=== PATIENT | female | born 1985 | race Caucasian/White ===

== ENCOUNTER 2020-11-28 03:46 | Emergency (ER) | payer BC, SELFPAY ==
--- NOTE | ~2020-11-28 | XR_ITS ---
EXAMINATION: XR chest 1V portable DATE: 11/28/2020 08:59 INDICATION: Nonsmoker with intermittent hypoxia TECHNIQUE: frontal view of the chest was obtained. COMPARISON: Chest radiograph dated 01/08/2005 FINDINGS: The lungs remain clear with no focal airspace opacities, pulmonary edema, pleural effusion or pneumot horax. The cardiomediastinal silhouette is normal. Visualized bones and soft tissues are unremarkable . IMPRESSION: 1. No acute cardiopulmonary disease. Reviewed, dictated and finalized at location A.
[2020-11-28 03:51] VITALS: BP 112/67; PULSE 98; RESP 20; TEMP 36.1; O2SAT 96
--- NOTE | 2020-11-28 04:00 | ECG_ITS ---
Measurements Intervals [place] Rate: 101 P: 34 OK: 164 QRS: 59 QRSD: 90 T: 24 QT: 354 QTc: 459 Interpretive Statements SINUS TACHYCARDIA BORDERLINE ECG Electronically Signed On 11-28-2020 6:07:28 CDT by Jeffrey Bryant D.O.
--- NOTE | 2020-11-28 04:06 | ED.GENADULT ---
HPI - General Adult General Chief complaint: Alcohol <Mack Jeong MD - Last Filed: 11/28/20 07:00> Stated complaint: etoh <Mack Jeong MD - Last Filed: 11/28/20 07:00> Time Seen by Provider: 11/28/20 03:51 <Mack Jeong MD - Last Filed: 11/28/20 07:00> History of Present Illness HPI narrative: Patient 35-year-old female who presents the emergency department with chief complaint of alcohol intoxication and depression. Patient reports that she has been more depressed over the last week reports has been having thoughts of wanting to hurt herself and tonight reports that she took two 0.25 mg Xanax and then drank a bottle of wine and drank a few shots of hard liquor. The patient was found minimally responsive and police did some chest compressions on her she vomited and woke up and has been alert and oriented since then. The patient states she is having no pain just feels intoxicated at this time. <Mack Jeong MD - Last Filed: 11/28/20 07:00> Related Data Allergies/adverse reactions: Allergies Allergy/AdvReac Type Severity Reaction Status Date / Time No Known Allergies Allergy Verified 09/12/19 12:54 <Mack Jeong MD - Last Filed: 11/28/20 07:00> Review of Systems Review of Systems: A 10 system review of systems was completed on the patient and is negative except for what is stated in the HPI. Nursing and ancillary documentation was reviewed. <Mack Jeong MD - Last Filed: 11/28/20 07:00> [facility] Past Medical History Medical History: Medical History Generalized anxiety disorder Patellar dislocation right Sore throat (~07/2018) <Mack Jeong MD - Last Filed: 11/28/20 07:00> Surgical History Surgical History: Surgical History History of foot surgery right <Mack Jeong MD - Last Filed: 11/28/20 07:00> Family History Family History: Family History Other Diabetes mellitus Hypertension <Mack Jeong MD - Last Filed: 11/28/20 07:00> Social History Social History: Social History Smoking status: Never smoker Second hand tobacco smoke exposure: No Alcohol intake: never Substance use: never Substance use type: sedatives <Mack Jeong MD - Last Filed: 11/28/20 07:00> Exam Narrative: GENERAL: Well-appearing, well-nourished, and in no acute distress. HEAD: Normocephalic, atraumatic. EYES: PERRLA and EOMI. ENT: Nares clear, no rhinorrhea or epistaxis. Mucous membranes moist. NECK: Supple. CHEST: Clear to auscultation. No respiratory distress. HEART: Regular rate and rhythm. No murmur heard. Normal peripheral pulses. ABDOMEN: Soft, nontender, nondistended, normal active bowel sounds. EXTREMITIES: Normal range of motion. No edema. SKIN: Warm, dry, no rash. NEURO: No focal deficits. Alert and oriented x3. PSYCH: Depressed affect tearful <Mack Jeong MD - Last Filed: 11/28/20 07:00> Course Reevaluation(s) Reevaluation #1: Patient is no longer intoxicated. She was assessed by Marla from [facility]. Patient is medically cleared. She has been dealing with worsening depression for some months. She told Marla that she has written suicide notes to her children and she has been drinking more. It has been determined that she will need inpatient psychiatric placement. She has been accepted to [facility] by Dr. Hardin. <Omayra Olson MD - Last Filed: 11/28/20 16:18> Date: 11/28/20 <Omayra Olson MD - Last Filed: 11/28/20 16:18> Time: 13:11 <Omayra Olson MD - Last Filed: 11/28/20 16:18> Reevaluation #2: PAtient is awaiting for an ambulance
[2020-11-28] MEDS: SODIUM CHLORIDE 0.9% IV 1,000 ML 999 ML IV CONT (04:24)
[2020-11-28] MEDS: ONDANSETRON INJ 4 MG/2 ML VIAL IV PUSH (04:24)
[2020-11-28 04:27] LABS: Basophils Absolute Auto 0.1 K/mm3 (0.0-0.1); Basophils Percent Auto 0.4 % (0.2-1.2); Eosinophils Absolute Auto 0.1 K/mm3 (0-0.3); Eosinophils Percent Auto 0.7 % (0-4.4); Hematocrit 41.6 % (37.0-47.0); Hemoglobin 13.4 g/dL (12.0-15.0); Immature Granulocyte Absolute 0.05 K/mm3 (0.00-0.031); Immature Granulocyte Percent A 0.4 % (0-0.5); Lymphocytes Percent Auto 31.4 % (18.3-44.2); Mean Corpuscular HGB Conc 32.2 g/dl (32-36); Mean Corpuscular Hemoglobin 28.1 pg (26-34); Mean Corpuscular Volume 87.2 fl (80-100); Mean Platelet Volume 9.6 fl (7.4-10.4); Monocytes Absolute Auto 0.7 K/mm3 (0.1-0.6); Monocytes Percent Auto 5.4 % (2.6-8.5); Neutrophils Absolute Auto 7.5 K/mm3 (1.3-6.7); Neutrophils Percent Auto 61.7 % (45.5-73.1); Platelet Count Result 355 k/mm3 (150-375); Red Blood Count 4.77 M/mm3 (4.2-5.4); Red Cell Distribution Width 13.3 % (11.5-14.5); White Blood Count 12.1 K/mm3 (4.5-10.0)
[2020-11-28 04:39] LABS: Alanine Aminotransferase 23 U/L (4-35); Albumin Level 4.3 g/dL (3.5-5.1); Alkaline Phosphatase 109 U/L (38-126); Anion Gap 11 mmol/L (8-16); Aspartate Amino Transferase 27 U/L (14-36); Bilirubin,Total < 0.1 mg/dL (0.2-1.3); Blood Urea Nitrogen 9 mg/dL (7-17); Calcium 8.7 mg/dL (8.4-10.2); Carbon Dioxide 25 mmol/L (22-30); Chloride 103 mmol/L (98-107); Estimated CRCL calculation 138 ml/min; Estimated Glomerular Filt Rate > 60; Glucose 119 mg/dL (65-110); Potassium 3.7 mmol/L (3.4-5.0); Sodium 139 mmol/L (137-145)
[2020-11-28 04:40] LABS: Acetaminophen < 10 ug/mL (10-30); Ethanol 182 mg/dL (<10); Salicylate < 1.0 mg/dL (2-20)
[2020-11-28] MEDS: LORazepam INJ (*CRX) 2 MG/ML VIAL 1 MG IV PUSH (05:40)
[2020-11-28 06:20] LABS: Add Urine Microscopic? YES; Appearance Urine Clear (Clear); Bacteria Urine Trace /hpf; Bilirubin Urine Negative (Negative); Blood Urine 1+ (Negative); Color Urine Colorless (Yellow); Glucose Urine UA Negative (Negative); Ketones Urine Negative (Negative); Leukocyte Esterase Ur Negative LEU/UL (Negative); Nitrate Urine Negative (Negative); Protein Urine Negative (Negative); RBC Urine 0-2 /hpf (0-2); Squamous Epithelial Cell Urine Rare /hpf (Few); Urobilinogen Urine Negative mg/dL (<2.0); WBC Urine 0-3 /hpf
[2020-11-28 06:31] LABS: Barbiturate Screen Urine Negative (Negative); Benzodiazepines Screen Urine Negative (Negative); Specific Grav Ur 1.002 (1.001-1.035)
[2020-11-28 06:34] LABS: Amphetamine Screen Urine Negative (Negative); Cannabinoid Screen Urine Negative (Negative); Methadone Screen Urine Negative (Negative); Opiate Screen Urine Negative (Negative); Phencyclidine Screen Urine Negative (Negative)
[2020-11-28 06:38] VITALS: BP 114/54; PULSE 97; RESP 18; TEMP 36.4; O2SAT 93
[2020-11-28 06:47] LABS: Ethanol 135 mg/dL (<10)
[2020-11-28 06:52] LABS: Cocaine Screen Urine Negative (Negative)
--- NOTE | 2020-11-28 08:31 | PC.NURSE ---
Per EDP via verbal order readback continue sitter with patient due to suicidal ideations and writing suicidal notes to their children. Pt. denies having a plan.
[2020-11-28 08:32] VITALS: BP 102/56; PULSE 99; RESP 20; O2SAT 99
[2020-11-28] MEDS: LACTATED RINGERS 1,000 ML 999 ML IV CONT (08:57)
[2020-11-28 09:40] LABS: Ethanol 76 mg/dL (<10)
[2020-11-28 10:36] VITALS: BP 115/78; PULSE 112; RESP 14; O2SAT 99
--- NOTE | 2020-11-28 12:20 | PC.NURSE ---
Received call from [facility] with accepting doctor, Dr. Hardin.
--- NOTE | 2020-11-28 12:56 | PC.NURSE ---
Received phone call from Marie with [facility] facility, confirming that patient has been covid tested.
[2020-11-28 13:03] LABS: EDCOVIDSCREEN Negative (Negative)
[2020-11-28] MEDS: ACETAMINOPHEN 325 MG TABLET 650 MG PO (16:40)
--- NOTE | 2020-11-28 19:36 | PC.NURSE ---
called [facility] to request transport [facility] unavailable. [facility] [place] [facility] also declined. [facility] accepted and ETA is 1130 tomorrow.
--- NOTE | 2020-11-28 22:46 | PC.NURSE ---
[facility]. Called [facility] and ETA is approx 2 1/2 hours
[2020-11-28 23:00] VITALS: RESP 16; O2SAT 98
--- NOTE | 2020-11-28 23:00 | PC.NURSE ---
Assumed care of pt. at this time. Report from Mattie
[2020-11-29 00:27] VITALS: BP 127/82; PULSE 83; RESP 16; TEMP 36.6; O2SAT 98
[2020-11-29 01:25] VITALS: BP 128/74; PULSE 78; RESP 14; O2SAT 97
--- NOTE | 2020-11-29 01:51 | PC.NURSE ---
Previous Rn gave report to SHALA Roberson at [id number] 11/28/20
--- NOTE | 2020-11-29 05:43 | PC.NURSE ---
cancelled [facility]
== END 2020-11-29 01:25 ==
PROVIDERS: Emergency Medicine; Emergency Provider General Practice; PCP Physician Assistant
DX: F32.9 Major depressive disorder, single episode, unspecified (principal); F10.120 Alcohol abuse with intoxication, uncomplicated; F19.90 Other psychoactive substance use, unspecified, uncomplicated; Y90.6 Blood alcohol level of 120-199 mg/100 ml; Z20.822 Contact with and (suspected) exposure to COVID-19
CPT/HCPCS: 36415; 71045; 80053; 80307; 81001; 81025; 84443; 85025; 87426; 93005; 96361; 96374; 96375; 99285; A9270; C9803; J2060; J2405; J7030; J7120

== ENCOUNTER 2024-06-05 09:07 | Emergency (ER) | payer BC, SELFPAY ==
--- OUTSIDE RECORDS SUMMARY | 2024-06-05 09:09 | XMS_ITS | Data Portability ---
Author Organization [facility] Address [address] [place] [address] Care Team Providers Care Hook Loader Name Role Phone MICHAEL HILL Primary Care Provider LACHELLE GILMORE Primary Care Provider Assessment Encounter Date Assessment Date Assessment LastModified by Organization Details LastModified Time 01/11/2021 01/11/2021 Annual gynecological exam performed. Patient will come back in a year unless there are new symptoms. Not available 01/11/2021 12:12:04 03/25/2023 03/25/2023 Annual gynecological exam performed. Patient will come back in a year unless there are new symptoms. [email or web address] Not available 03/25/2023 09:31:08 Plan of Treatment Reminders Order Date Submit Date Provider Last Modified By Organization Details Last Modified Time Details Appointments None recorded. Lab None recorded. Referral None recorded. Procedures None recorded. Surgeries None recorded. Imaging None recorded. Medication Orders Provera 10 mg tablet 2020 021 [email or web address] [facility] #[id number], [address], [place], [id number], 09:48:43 Loestrin Fe 1/20 (28-Day) 1 mg-20 mcg (21)/75 mg (7) tablet 2021 022 JENNIFER [facility] #[id number], [address], [place], [id number], 2 18:19:38 Blisovi Fe /20 (28) 1 mg-20 mcg (21)/75 mg (7) tablet 2021 022 [facility] #[id number], [address], [place], [id number], 2 17:32:38 Blisovi Fe / (28) 1 mg-20 mcg (21)/75 mg (7) tablet 2022 023 [facility] #[id number], [address] [facility], [place], [place], [id number], 3 09:51:35 Patient TargetsNo targets recorded. Patient InstructionsNo instructions recorded. Reason for Referral None Reported. 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 Locat ion: [place] [facility] Recei damon: 01/11 2349 First Scree n: Jaswinder Arnold , [place] Speci men: Scree miguel Pap - Image d, Cervi x STATE MENT OF ADEQU ACY: Satis facto ry for evalu ation Trans forma tion zone compo nent prese nt FINAL DIAGN OSIS: Negat freda for Intra epith miko patel or Atilio pate (NIL) Elect linda joy alejandro d by Jaswinder Arnold , CT on 2020 at 5:38 PM ----- ----- ----- ----- ----- ----- ----- ----- ----- ----- ----- ----- ----- ----- ----- ----- ----- ---- HPV RESUL TS: HPV mRNA E6/E7 : No HPV mRNA Detec stu NOTE: This high risk HPV mRNA assay detec ts fourt een high- risk HPV types (16, 18, 31, 33, 35, 39, 45, 51, 52, 56, 58, 59, 66, 68) witho ut diffe renti ation . COMME NT: Note: This speci men was revie wed by a Cytot echno logis t and/o r Patho logis t (as indic ated in this repor t) after evalu ation using the Thinp rep Imagi ng Syste m. CLINI PURA INFOR MATIO N: Menst rual Statu s: LMP (if appli cable ): 021 Clini pura Histo ry/Pr eviou s Pap: Type of Neopl adolfo (if appli cable ): Signi fican t Clini pura Findi ngs: Other Histo ry: Hormo hever (if appli cable ): PAP EDUCA EUN L NOTE: The Pap Test is a scree miguel test with an inher ent false negat freda rate. Liqui d-bas e sampl ing may decre ase, but will not elimi yamileth, false negat freda resul ts. A negat freda resul t does not precl ude the prese nce and/o r devel opmen t of disea se, since the prese nce of abnor mal cells in the sampl e depen ds on the locat ion of the lesio n and sampl ing techn ique. Kathie nued regul ar scree miguel is the best metho d of cance r preve ntion . If repor stu cytol ogic findi ng do not corre late with physi pura and/o r histo rical findi ngs, furth er inves tigat ion is recom margarito d, as clini aminata louise nted. Not Available [facility] [address], [place], [address], 01/15/2021 18:40:45 Result Notes None recorded. Problems Name Problem SNOMED Code Status Onset Date Resolution Date Notes Provider Name and Address Organization Details Recorded Time Insertio n of intraute rine contrace ptive device Completed 201310/11/2020 INSERTIO N OF IUD;Matthew rded Elsewher e: No Locat ion: Mattiesharonda gordon [facility] S ource: EHR Us Administrative Law Judge isabel: N Practi ce ID: 0001 Jonny lable Time: 08:00:00 AM Noreen Mckeon [facility] 1 12:22:[address] Concept Completed 201510/11/2020 Decrease d movement s, third trimeste r, unsp;Rec orded Elsewher e: No Locat ion: [facility] S ource: EHR Us Administrative Law Judge isabel: N Wayneti ce ID: 0001 Jonny lable Time: 01:18:00 [address]on [facility] 1 12:22:35 Irregula r intermen strual bleeding [id number] Completed 201410/11/2020 Metrorrh agia;Rec orded Elsewher e: No [facility] Administrative Law Judge isabel: N Wayneti ce ID: 0001 Jonny lable Time: 08:45:00 AM [address]oreen Mckeon [facility] 1 12:22:02 Normal pregnanc y in multigra alpa [id number] Completed 201510/11/2020 Encounte r for supervis ion of other normal pregnanc y, 1st trimeste r;Record ed Elsewher e: No [facility]at [facility] S our[facility]: EHR Us Administrative Law Judge isabel: N Practi ce ID: 0001 Jonny lable Time: 09:15:00 AM Noreen Mckeon [facility] 1 12:22:10 Human papillom avirus deoxyrib onucleic acid detected , high risk on cervical specimen [id number] Completed 201510/11/2020 Cervical high risk HPV DNA test positive ;Recorde d Elsewher e: No Locat ion: [facility] S ource: EHR Us Administrative Law Judge isabel: N Practi ce ID: 0001 Jonny lable Time: 11:10:30 AM Noreen Mckeon [facility] 1 12:21:59 Hemorrha gic complica tion of pregnanc y [id number] Completed 201510/11/2020 Other hemorrha ge in early pregnanc y;Record ed Elsewher e: No Locat ion: [facility] S ource: EHR Us Administrative Law Judge isabel: N Practi ce ID: 0001 Jonny lable Time: 09:00:00 AM Noreen Mckeon [facility] 12:21:55 Secondar y amenorrh ea [id number] Completed 201510/11/2020 Secondar y amenorrh ea;Recor ded Elsewher e: No Locat ion: [facility] S ource: EHR Us Administrative Law Judge isabel: N Practi ce ID: 0001 Jonny lable Time: 09:15:00 AM Noreen Mckeon [facility] 12:22:[address] Concept Completed 201710/11/2020 Encntr for general adult medical exam w/o abnormal findings ;Recorde d Elsewher e: No Locat ion: [facility] S ource: EHR Us Administrative Law Judge isabel: N Practi ce ID: 0001 Jonny lable Time: 09:30:00 AM Noreen Mckeon [facility] 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 12:22:38 Dyspareu fernando [id number] Completed 201410/11/2020 Dyspareu fernando;Matthew rded Elsewher e: No Locat ion: [facility] S ource: EHR Us Administrative Law Judge isabel: N Practi ce ID: 0001 Jonny lable Time: 02:00:00 PM Noreen dorsey [facility] 12:21:37 Gestatio n period, 10 weeks [id number] Completed 201510/11/2020 10 weeks gestatio n of pregnanc y;Practi ce ID: 0001 Noreen dorsey [facility] 12:21:46 Pregnanc y test negative [id number] Completed 201510/11/2020 Encounte r for pregnanc y test, result negative ;Practic e ID: 0001 Noreen Mckeon [facility] 12:22:19 Pregnanc y detectio n examinat ion Completed 201510/11/2020 Encounte r for pregnanc y test, result positive ;Practic e ID: 0001 Noreen dorsey [facility] 12:22:17 Atypical squamous cells of undeterm ined signific ance on cervical Papanico laou smear [id number] Completed 201510/11/2020 Atyp squam cell of undet signfc cyto smr crvx (ASC-US) ;Practic e ID: 0001 Noreen dorsey [facility] 12:21:23 Chronic intersti tial cystitis [id number] Completed 201410/11/2020 Chronic intersti tial cystitis ;Practic e ID: 0001 Noreen dorsey [facility] 12:21:26 Removal of intraute rine device Completed 201410/11/2020 Encounte r for removal of intraute rine contrace ptive device;Maura rosales ID: [address] [facility] 12:22:27 Female genital organ symptoms [id number] Completed 201410/11/2020 Pelvic Pain;Pra ctice ID: [address] [facility] 12:21:43 Acetonur ia [id number] Completed 201410/11/2020 Acetonur ia;Pract ice ID: [address] [facility] 12:21:16 Screenin g for malignan t neoplasm of cervix Completed 201310/11/2020 Pap Smear;Pr actice ID: [address] [facility] 12:22:30 Family planning surveill ance Completed 201310/11/2020 Contrace ptive surveill ance, unspecif ied;Prac sundar ID: [address] [facility] 12:21:41 Adult health examinat ion Completed 201410/11/2020 Routine general medical examinat ion at a health care facility ;Practic e ID: [address] [facility] 12:21:20 Speciali zed medical examinat ion Completed 201410/11/2020 Routine gynecolo gical examinat ion;Prac sundar ID: [address] [facility] 12:22:40 Postpart um care Completed 201210/11/2020 Postpart um follow-u p;Practi ce ID: [address] [facility] 12:22:15 Cyst of ovary [id number] Completed 201210/11/2020 OVARIAN CYST;[facility]ra ctice ID: 0001 [facility] 12[facility]21:32 Radiolog y result abnormal [id number] Completed 201210/11/2020 Nonspeci fic abnormal findings on radiolog ical and other examinat ion of abdomina l area, includin g retroper itoneum; Practice ID[facility] 0001 [facility] 12:22:25 Evaluati on finding Completed 201610/11/2020 Unsp abnormal cytolog findings in specmn from cervix uteri;Pr actice ID: 0001 [facility] 12:21:38 Oligohyd ramnios with antenata l problem [id number] Completed 201210/11/2020 Oligohyd ramnios, antepart um;Pract ice ID: 0001 [facility] 12:22:12 Gestatio n period, 32 weeks [id number] Completed 201510/11/2020 32 weeks gestatio n of pregnanc y;Practi ce ID: 0001 [facility] 12:21:48 Complica tion related to pregnanc y Completed 201210/11/2020 Weight Insuffic ient Antepart um;Pract ice ID: 0001 [facility] 12:21:28 Routine antenata l care Completed 201210/11/2020 Supervis ion of other normal pregnanc y;Practi ce ID: 0001 Noreen dorsey [facility] 12:22:29 Poor growth affectin g manageme nt [id number] Completed 201210/11/2020 GROWTH POOR SGA;Prac sundar ID: 0001 Noreen dorsey [facility] 06/17/202 1 12:22:13 Ultrason ography Completed 201210/11/2020 Antenata l screenin g for malforma tion using ultrason ics;Matthew rded Elsewher e: No [facility]at [facility] S ource: EHR Us Administrative Law Judge isabel: N Practi ce ID: 0001 Jonny lable Time: 04:45:00 PM Noreen Mckeon [facility] 1 12:22:50 Antenata l screenin g Completed 201210/11/2020 Antenata l screenin g for malforma tion using ultrason ics;Matthew rded Elsewher e: No Locat ion: [place] [facility] S ource: EHR Us Administrative Law Judge isabel: N Practi ce ID: 0001 Jonny lable Time: 04:45:00 PM Noreen Mckeon [facility] 1 12:21:21 Congenit al malforma tion [id number] Completed 201210/11/2020 Antenata l screenin g for malforma tion using ultrason ics;Matthew rded Elsewher e: No [facility] S ource: EHR Us Administrative Law Judge isabel: N Practi ce ID: 0001 Jonny lable Time: 04:45:00 PM Noreen Mckeon [facility] 1 12:21:30 Nausea and vomiting [id number] Completed 201210/11/2020 Nausea And Vomiting ;Recorde d Elsewher e: No Locat ion: [facility] S ource: EHR Us Administrative Law Judge isabel: N Practi ce ID: 0001 Jonny lable Time: 09:00:00 AM Noreen Mckeon [facility] 1 12:22:09 Excessiv e growth affectin g manageme nt of mother [id number] Completed 201210/11/2020 GROWTH LARGE LGA;Prac sundar ID: [address] [facility] 1 12:21:40 Prematur e rupture of membrane s with antenata l problem [id number] Completed 201210/11/2020 Prematur e rupture of membrane s, antepart um;Pract ice ID: [address] [facility] 12:22:23 Gestatio n period, 34 weeks [id number] Completed 201510/11/2020 34 weeks gestatio n of pregnanc y;Practi ce ID: [address] [facility] 12:21:50 Medical examinat ion for suspecte d conditio n Completed 201510/11/2020 Encntr for susp prob w amnio cavity and membrane ruled out;Prac sundar ID: [address] [facility] 12:22:07 Past pregnanc y history of gestatio nal trophobl astic disease [id number] Completed 201510/11/2020 Personal history of comp of preg, chldbrth and the puerp;Pr actice ID: [address] [facility] 12:21:57 Pregnanc y test positive [id number] Completed 201110/11/2020 Positive Pregnanc y Test;Pra ctice ID: [address] [facility] 12:22:20 Body mass index 30+ - obesity 985637116 Completed 201510/11/2020 Body mass index (BMI) 33.0-33. 9, adult;Re corded Elsewher e: No Locat ion: Marissa leyva [facility] S ource: EHR Us Administrative Law Judge isabel: N Practi ce ID: 0001 Jonny lable Time: 09:15:00 [facility] 12:21:24 Complica tion of pregnanc y, childbir th and/or puerperi [id number] Completed 201510/11/2020 Oth diseases and conditio ns compl preg/chl dbrth;Pr actice ID: 0001 Noreen dorsey [facility] 12:22:44 Gestatio n period, 38 weeks [id number] Completed 201510/11/2020 38 weeks gestatio n of pregnanc y;Practi ce ID: 0001 Noreen dorsey [facility] 12:21:51 Lacerati on of female perineum Completed 201510/11/2020 First degree perineal lacerati on during delivery ;Practic e ID: 0001 Noreen dorsey [facility] 12:22:04 Single live [id number] Completed 201510/11/2020 Single live ;Pr actice ID: 0001 Noreen Mckeon [facility] 12:22:33 Delivery normal [id number] Completed 201210/11/2020 Normal delivery ;Practic e ID: 0001 Noreen dorsey [facility] 12:21:35 Gestatio n period, 39 weeks [id number] Completed 201510/11/2020 39 weeks gestatio n of pregnanc y;Practi ce ID: 0001 Noreen Mckeon [facility] 12:21:53 Lochia finding Completed 201510/11/2020 Encounte r for routine postpart um follow-u p;Practi ce ID: 0001 Noreen Mckeon [facility] 12:22:05 Gestatio n less than 9 weeks [id number] Completed 201510/11/2020 Less than 8 weeks gestatio n of pregnanc y;Record ed Elsewher e: No [facility] Administrative Law Judge isabel: N Practi ce ID: 0001 Jonny lable Time: 09:15:00 AM Noreen Mckeon [facility] 12:21:45 Acute upper respirat ory infectio n [id number] Completed 201210/11/2020 Acute upper respirat ory infectio ns of unspecif ied site;Pra ctice ID: [address] [facility] 12:21:18 Threat ed prematur e labor - not delivere d [id number] Completed 201210/11/2020 [facility] ed prematur e labor, antepart um;Pract ice ID: [address] [facility] 12:22:42 Problem Notes None recorded. Procedures Surgical History Date Name Laterality Status Provider Name and Address Organization Details Recorded Time Date of Last Pap Smear completed Carly Nation [facility] 03/25/2023 09:26:31 procedure on foot completed [facility] 2019 13:10:31 kidney stone analysis completed [facility] 2019 13:10:44 Dilation and Curettage completed [facility] 2019 13:10:50 Imaging Results None recorded. Procedure Notes None recorded. Medical Equipment None Reported. Allergies No known drug allergies Medications Name Sig Start Date Stop Date Status Note LastModified by Organization Details LastModified Time medroxypr ogesteron e 10 mg tablet TAKE 1 TABLET BY MOUTH DAILY FOR 10 DAYS AT THE END OF EACH MONTH IF PERIOD DOES NOT OCCUR ON ITS OWN 03/25 completed Not Available Not Available Not Available Ceftin 500 mg tablet take 1 tablet (500MG) by oral route every 12 hours 01/06 completed Prescrib ed Elsewher e: No [facility] By: jaiden Leyva ncounter DateTime : 08/31/19 13 09:15:00 AM Not Available Not Available Not Available fluconazo le 150 mg tablet 03/25 completed Not Available Not Available Not Available Claritin 10 mg tablet take 1 tablet by oral route every day 2018 active Prescrib ed Elsewher e: Yes Loca tion: Marissa leyva [facility] odify By: amannie duraner DateTime : 09/23/19 19 03:30:00 PM Not Available Not Available Not Available sertralin e 100 mg tablet TAKE 1 TABLET BY MOUTH DAILY 01/11 completed Not Available Not Available Not Available hydroxyzi ne pamoate 50 mg capsule TAKE 1 CAPSULE BY MOUTH TWICE DAILY NEEDED active Not Available Not Available No t Available Zofran 8 mg tablet take 1 tablet (8MG) by oral route every 12 hours 01/06 completed Prescrib ed Elsewher e: No Locat ion: Luan gordon [facility] odify By: jaiden starruntdamir DateTime : 07/17/19 13 09:00:00 AM Not Available Not Available Not Available alprazola m 0.25 mg tablet TAKE ONE-HALF TO ONE TABLET BY MOUTH DAILY NEEDED FOR PANIC 10/11 completed Not Available Not Available Not Available Low-Ogest rel (28) 0.3 mg-30 mcg tablet TAKE 1 TABLET BY ORAL ROUTE EVERY DAY 11/28 completed Not Available Not Available Not Available Nor-Q-D 0.35 mg tablet take 1 tablet by oral route every day 01/30 completed Prescrib ed Elsewher e: No Locat ion: Marissa leyva [facility] odify By: lbillhar tz Encou nter DateTime : 07/11/19 17 09:30:00 AM Not Available Not Available Not Available Vitamin D2 1,250 mcg (50,000 unit) capsule take 1 capsule (45737HI ITS) by oral route every week 12/20 completed Prescrib ed Elsewher e: No Locat ion: Marissa leyva [facility] odify By: kpanyik Encounte r DateTime : 09/13/19 16 11:56:32 AM Not Available Not Available Not Available sertralin e 50 mg tablet TAKE 1 TABLET BY MOUTH EVERY DAY IN THE MORNING active Not Available Not Available No t Available Xanax 1 mg tablet 11/26 completed Not Available Not Available Not Available amoxicill in 875 mg-potass ium clavulana te 125 mg tablet 03/25 completed Not Available Not Available Not Available hydroxyzi ne pamoate 25 mg capsule TAKE 2 CAPSULES BY MOUTH TWICE DAILY NEEDED 11/26 completed Not Available Not Available Not Available aripipraz ole 5 mg tablet TAKE 1 TABLET BY MOUTH EVERY DAY AT BEDTIME active Not Available Not Available No t Available sertralin e 01/11 completed Not Available Not Available Not Available Claritin 10/11 completed Not Available Not Available Not Available hydroxyzi ne pamoate 01/11 completed Not Available Not Available Not Available aripipraz ole 01/11 completed Not Available Not Available Not Available 10 mg-[address] by Topical route every USE ASS NEEDED WITH INTERCOU RSE 08/16 completed Prescrib ed Elsewher e: Yes Loca tion: [facility] odify By: jaiden Leyva ncounter DateTime : 01/07/20 13 08:45:00 AM Not Available Not Available Not Available Triveen-D uo DHA 29 mg-1 mg-400 mg oral pack take 1 by Oral route 09/22 completed Prescrib ed Elsewher e: No Locat ion: [facility] odify By: samuel Leyva ncounter DateTime : 03/21/20 15 03:45:00 PM Not Available Not Available Not Available TABLET TESTER-PNV-DH A 28 mg iron-1 mg-200 mg capsule 11/26 completed Not Available Not Available Not Available Blisovi Fe 05/16 (28) 1 mg-20 mcg (21)/75 mg (7) tablet Take 1 tablet every day by oral route for 90 days. 2022 active Not Available Not Available Not Avai lable Afluria Qd 2019- (36 mos up)(PF)60 mcg (15 mcg x4)/0.5 mL IM syringe ADM 0.5ML IM UTD 03/29 completed Not Available Not Available Not Available Vitals Date Recorded Body height Body mass index (BMI) Body weight Systolic blood pressure Diastolic blood pressure Provider Name and Address Organization Details Last Updated DateTime 10/11/2020 175.26 cm 39.3 kg/m2 265167.8 5 g 138 mm[Hg] 79 mm[Hg] [facility] 1 12:47:01 Date Recorded Body height Body mass index (BMI) Body weight Systolic blood pressure Diastolic blood pressure Provider Name and Address Organization Details Last Updated DateTime 01/11/2021 174.63 cm 40.5 kg/m2 806752.1 2 g 126 mm[Hg] 74 mm[Hg] [facility] 1 12:16:46 Date Recorded Body height Body mass index (BMI) Body weight Systolic blood pressure Diastolic blood pressure Provider Name and Address Organization Details Last Updated DateTime 11/26/2021 174.63 cm 43.5 kg/m2 331431.6 9 g 121 mm[Hg] 81 mm[Hg] [facility] 2 16:22:05 Date Recorded Body height Body mass index (BMI) Body weight Systolic blood pressure Diastolic blood pressure Provider Name and Address Organization Details Last Updated DateTime 02/26/2022 174.63 cm 41.9 kg/m2 623437.0 5 g 121 mm[Hg] 82 mm[Hg] [facility] 2 17:23:47 Date Recorded Body height Body mass index (BMI) Body weight Systolic blood pressure Diastolic blood pressure Provider Name and Address Organization Details Last Updated DateTime 03/25/2023 174.63 cm 41.9 kg/m2 391704.0 5 g 107 mm[Hg] 72 mm[Hg] Carly Nation [facility] 3 09:34:27 Social History Question Answer Notes LastModified by Organizat ion Details LastModified Time Tobacco Smoking Status [facility]22 17:16:49 Do You Have An Advance Directive? No Information not available 10/11/2020 What Is Your Level Of Alcohol Consumption? Occasional Information not available 10/11/2020 How Many Years Have You Consumed Alcohol? 12 Information not available 10/11/2020 Are You Blind Or Do You Have Difficulty Seeing? No Information not available 10/11/2020 What Is Your Level Of Caffeine Consumption? Moderate Information not available 10/11/2020 How Much Tobacco Do You Chew? None Information not available 10/11/2020 In The 14 Days Before Symptom Onset, Have You Had Close Contact With A Laboratory-confir med COVID-19 While That Case Was Ill? No Information not available 10/11/2020 In The 14 Days Before Symptom Onset, Have You Had Close Contact With A Person Who Is Under Investigation For COVID-19 While That Person Was Ill? No Information not available 10/11/2020 Have You Been To An Area Known To Be High Risk For COVID-19? No Information not available 10/11/2020 Are You Deaf Or Do You Have Serious Difficulty Hearing? No Information not available 10/11/2020 What Type Of Diet Are You Following? REGULAR Information not available 10/11/2020 What Is The Highest Grade Or Level Of School You Have Completed Or The Highest Degree You Have Received? 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 No Information not available 10/11/2020 Do You Use Protection During Sex? No Information not available 10/11/2020 Do You Use Your Seat Belt Or Car Seat Routinely? Yes Information not available 10/11/2020 Do You Have Smoke And Carbon Monoxide Detectors In Your Home? Yes Information not available 10/11/2020 How Much Tobacco Do You Smoke? No Information not available 10/11/2020 Do You Feel Stressed (tense, Restless, Nervous, Or Anxious, Or Unable To Sleep At Night)? [id number] Information not available 10/11/2020 Do You Use Any Illicit Or Recreational Drugs? No Information not available 10/11/2020 Do You Use Sunscreen Routinely? Yes Information not available 10/11/2020 Have You Used IV Drugs? No Information not available 10/11/2020 Sex: Unknown Functional Status Question Answer Note LastModified by Organizat ion Details LastModified Time Do you have difficulty walking or climbing stairs? No [email or web address] Information not available 02/26/2022 Are you able to walk? YESWOREST Information not available 10/11/2020 Are you able to care for yourself? Yes [email or web address] Information not available 02/26/2022 Do you have difficulty dressing or bathing? No [email or web address] Information not available 02/26/2022 What is your exercise level? Moderate Information not available 10/11/2020 Mental Status None recorded. Family History Relationship Description Onset Age of this Age Resolved Age Notes LastModified by Organization Details LastModified Time Mother Diabetes mellitus [email or web address] Not available 2019 13:09:21 Mother Uterine fibroid polyp [email or web address] Not available 2021 17:16:49 Maternal Grandmother Disorder of thyroid gland [email or web address] Not available 2019 13:09:27 Maternal Grandfather Carcinoma in situ of lung [email or web address] Not available 05/2021 17:16:49 Maternal Aunt Cyst of ovary [email or web address] Not available 2021 17:16:49 Medical History Condition Response Allergies (Food, seasonal, environmental ) N Other N Breast Cancer N Drug/Latex Allergies/Reactions N Blood Transfusion N Dermatologic Disorders N Lung Disease N Defects or Inherited Disease N Breast Problem N Gestational Diabetes N Hematologic disorders N Anesthesia Complications N History of STI N Deep Vein Thrombosis N Polycystic ovary syndrome N Anxiety Disorder N Autoimmune disease N Arthritis N Infertility N Polyps N Acid Reflux (GERD) N History of abnormal pap N Cancer N Stroke N Varicosities N Neurologic/Epilepsy N Endometriosis N High Cholesterol N Headaches N Fibromyalgia N Kidney Disease N Heart Problems N Kidney or Bladder Problems N Thyroid Problems N GI Problems N Eating Disorder N Anemia N Art (IVF or FET) N Psychiatric Illness N Ovarian Cancer N Diabetes N Pulmonary (TB, Asthma) N Hepatitis/Liver Disease N Eczema N Urinary Tract Infection N Abuse/Domestic Violence N Asthma N Trauma/Violence N Depression/ depression N Heart Disease N Pre-Eclampsia N Hypertension N Osteoporosis N Thrombophilias N Gynecological History Statement/Question Response Abnormal Pap Y Flow Moderate Date of LMP 03/17/2023 N On BCP's at Conception? N STIs/STDs N Was last menstrual period normal Y HPV Vaccine Y Duration of Flow (days) 4 Current Control Method BCPs Age at First Child 13 Are cycles usually normal Y Frequency of Cycle (Q days) 37 Sexually Active? Y BCPs Menses Monthly Y Age of first menstrual cycle 13 Date of Last Pap Smear 01/11/2021 Sexual Problems? N LMP Definite Desired Control Method BCPs N Obstetrics History GPAL:G 4 P 0 0 1 3 Type Value Spontaneous 1 Living 3 Total 4 Past Encounters Encounter ID Performer Location Encounter Start Date Encounter Closed Date Diagnosis/Indication Diagnosis SNOMED-CT Code Diagnosis ICD10 Code Diagnosis Note [id number] Lu Suarez [facility] [address] [address] 2019 13:01:45 2019 13:40:35 Gynecologic examination [id number] Z01.419 Take Calcium with Vitamin D 1200mg daily if not receiving in daily diet. It is strongly advised to have an annual flu shot and up can obtain at most pharmacies . If you have not had a TDap shot in the last 10 years you should obtain one as well. Discussed with patient & provided with informatio n regarding Gardisil vaccine to prevent the 4 strains for HPV that cause cervical cancer if under age 26. Encourage safe sexual practices, to use condoms and limit partners if not already in a monogamous relationsh ip. Do monthly self breast exams. Have mammogram yearly or every other year depending on family history. BRCA testing is now available for patients with strong genetic history of female cancer. If interested contact the office. Engage in daily exercise of low impact aerobic exercise 45-60 minutes 4-5 times weekly. Avoid tobacco and illicit drugs as well as using moderation with alcohol intake less than 1-2 8 oz beverages daily. This lifestyle behavior pattern will lead to less health conditions and longer life span. If BMI greater than 25 weight watchers or dietary consult advised. Patient received above instructio ns, and questions have been answered. If you have any questions please call or respond to this email. Patient was made aware of the patient portal and may obtain a paper copy of today's plan if desired. Secondary amenorrhea [id number] N91.1 No period since 07/06/2019 after stopping OCP. Wants to try for another baby. Neg Hx irregular menses in the past. [id number] Soledad Mckeon [facility] [address],[place] [address] 12/20/2019 09:52:17 12/20/2019 10:35:42 Amenorrhea [id number] N91.2 [id number] Lu Suarez [facility] [address],[place] [address] 12/20/2019 09:52:34 12/20/2019 11:08:17 Secondary dysmenorrhea [id number] N94.5 TVUS reviewed. Discussed Provera Challenge. Agreed to this trial. Will contact pt if further md recommenda tions after review of US are received. If provera challenge failed then consider estrogen/p rogesteron e challenge. RTO x 2wks Time spent in visit is a total of 15 mins with at least 50% of visit consisting of counseling and review of plan of care. [id number] Lu Suarez [facility] [address],[place] [address] 01/03/2020 11:11:53 01/03/2020 11:36:28 Secondary dysmenorrhea 19290056 N94.5 Since she was successful on provera challenge we agreed to monitor her cycles for the next 90d. She will f/u to report if was able to have menses on her own. We reviewed importance of having menses q90d to avoid precancers /cancers of endometriu m. Likely has not been ovulating regularly. RTO x 3mos Time spent in visit is a total of 15 mins with at least 50% of visit consisting of counseling and review of plan of care. [id number] Lu Suarez [facility] [address],[place] [address] 03/29/2020 10:06:35 03/29/2020 10:35:29 Secondary amenorrhea [id number] N91.1 Did well on provera challenge LINO but has not had a cycle on her own since this time. We agreed to do provera 10mg daily x 10d at the end of each month or end of q3mos for the next 6mos then f/u to see if able to have cycles on her own any of those months or how the provera is working for her. Body mass index 30+ - obesity [id number] Z68.39 Today we also counseled on diet/exerc ise changes to help lipid profile and possibly assist in regulating ovulation so periods resume as before. She is working on this with her spouse who is also in the process of making changes. Will continue to make changes. Offered referral nutritioni st/dietici an moving forward. [id number] Lu Suarez [facility] [address],[place] [address] 10/11/2020 12:38:42 10/11/2020 13:05:55 Secondary amenorrhea [id number] N91.1 DOing well on monthly provera for secondary amenorrhea .She has had a couple months where cycles started on their own; she is happy about this.Alana gordon has a cycle after using provera within the week.She prefers to continue this therapy & will return for updated WWE with pap/hpv in november or december 2020. Time spent in visit is a total of 15 mins with at least 50% of visit consisting of counseling and review of plan of care. Additional precaution altaf measures were taken to minimize potential exposure to the Covid-19 virus during this patient s visit, including available hand tunnel drier operator upon arrive, temperatur e check and being asked a series of screening questions. All staff wore face coverings during this encounter, as well as provided additional cleaning and sanitizing of all surfaces, including countertop s, pens, chairs, door handles, light switches, etc, prior to and following the patient s visit. [id number] Lu Suarez [facility] [address],[facility] [place] [address] 01/11/2021 11:57:38 01/11/2021 13:17:37 Gynecologic examination [id number] Z01.419 Take Calcium with Vitamin D 1200mg daily if not receiving in daily diet. It is strongly advised to have an annual flu shot and up can obtain at most pharmacies . If you have not had a TDap shot in the last 10 years you should obtain one as well. Discussed with patient & provided with informatio n regarding Gardisil vaccine to prevent the 4 strains for HPV that cause cervical cancer if under age 26. Encourage safe sexual practices, to use condoms and limit partners if not already in a monogamous relationsh ip. Do monthly self breast exams. Have mammogram yearly or every other year depending on family history. BRCA testing is now available for patients with strong genetic history of female cancer. If interested contact the office. Engage in daily exercise of low impact aerobic exercise 45-60 minutes 4-5 times weekly. Avoid tobacco and illicit drugs as well as using moderation with alcohol intake less than 1-2 8 oz beverages daily. This lifestyle behavior pattern will lead to less health conditions and longer life span. If BMI greater than 25 weight watchers or dietary consult advised. Patient received above instructio ns, and questions have been answered. If you have any questions please call or respond to this email. Patient was made aware of the patient portal and may obtain a paper copy of today's plan if desired.Pa p/hpv updatedSTD declinedPr overa doing well.Only need to use it about every 3rd month but has started to have cycle on her own each month.Will continue for now & we will re-visit this at her visit next year or if anything changes prior to this. [id number] IGOR Valles [facility] [address] [address] 11/26/2021 16:10:20 11/26/2021 18:01:17 Contraception care management [id number] Z30.9 Discussed all control options in great detail. Pt would like to start ocp. She is aware of the risks and benefits. She does not have any medical condition that is contraindi cated with the use of estrogen containing control. Pt will start her pills on the first thursday following the start of her period. She is aware it is not effective for control the first month. She is also aware of the importance of taking at the same time every day. Encouraged use of condoms as the pill does not protect against STD's. Will return in 3 months for med check. Consent was read and signed. Pt verbalized understand ing.Risk of OCP (VTE, Stroke, etc) discussed and accepted by patientBC consent signedWoul d like a combined OCPDenies any contraindi cations to estrogen containing BCLMP 11/05, if no spontaneou s menses occurs prior to 12/06 - she can take provera course and then start OCP after withdrawal bleed.Rx sent to patient pharmacy, RTC for 3 month med check Time spent in visit is a total of 20 mins with at least 50% of visit consisting of counseling and review of plan of care. [id number] Laura Ellis BRIE [facility] [address],[place] [address] 02/26/2022 17:15:43 02/26/2022 17:36:32 Contraception care management [id number] Z30.9 Patient is here today for a medicaton check of control. She voices goals of therapy have been met with use of this therapy. She denies neg side effects. She is eating, drinking, sleeping well; moods are stable & periods are well regulated. Wishes to continue this method of BC. Appropriat e to continue this medication .Happy with OCP!Would like to continue!R x sent x 12 monthsRTC for WWE as she is due [id number] IGOR [facility] [address],[place] [address] 03/25/2023 09:27:23 03/25/2023 10:00:03 Gynecologic examination [id number] Z01.419 Z11.51 Take Calcium with Vitamin D 1200mg daily if not receiving in daily diet. It is strongly advised to have an annual flu shot and up can obtain at most pharmacies . If you have not had a TDap shot in the last 10 years you should obtain one as well. Discussed with patient & provided with informatio n regarding Gardisil vaccine to prevent the 4 strains for HPV that cause cervical cancer if under age 26. Encourage safe sexual practices, to use condoms and limit partners if not already in a monogamous relationsh ip. Do monthly self breast exams. Have mammogram yearly or every other year depending on family history. BRCA testing is now available for patients with strong genetic history of female cancer. If interested contact the office. Engage in daily exercise of low impact aerobic exercise 45-60 minutes 4-5 times weekly. Avoid tobacco and illicit drugs as well as using moderation with alcohol intake less than 1-2 8 oz beverages daily. This lifestyle behavior pattern will lead to less health conditions and longer life span. If BMI greater than 25 weight watchers or dietary consult advised. Patient received above instructio ns, and questions have been answered. If you have any questions please call or respond to this email. Patient was made aware of the patient portal and may obtain a paper copy of today's plan if desired.Pa p/hpv due every 3yrs per asccp unless otherwise indicated STD Screen declined Genetic Screen discussed Colon Screen na Dexa Screen na Routine Labs PCP Contracept ion care management [id number] Z30.9 Happy on OCPRF sent x 1yr Health Concerns Section Related Observation LastModified by Organization Detai ls LastModified Time None Recorded Concern Status LastModified by Organization Details LastModified Time None Recorded Advance Directives Directive N: Payers Encounter Date Sequence Insurance Name Policy Number Policy Fernandez Covered Member ID Fernandez Member ID Guarantor Name 10/11/2020 1 [place] [id number] Jonatan Harrington [id number] Helen R Harrington 01/11/2021 1 [place] [id number] Jonatan Harrington [id number] Helen R Harrington 11/26/2021 1 [place] [id number] Jonatan Harrington [id number] Helen R Harrington 02/26/2022 1 [place] [id number] Jonatan Hrarington [id number] Helen R Harrington 03/25/2023 1 [place] [id number] Jonatan Harrington [id number] Helen R Harrington Notes Date Note Type Note Provider Name and Address Organization Details Recorded Time 10/11/2020 text/html Here for medicat ion check of Provera used for secondary amenorrhea. Lu Suarez, BRIE- [address], [place], [address], [facility] 10/11/2020 13:02:02 01/11/2021 text/html Annual GYNReport ed bypatient.Menstrual cycle:Normal menses Urinary symptoms:No hematuria; No incontinence Vulva:No genital lesion Vagina:Normal vaginal discharge Breast:No breast pain; No breast lump; No nipple discharge Current Contraception:Monoga mous relationship; Condoms Sexual complaints:No sexual complaints; No pain during intercourse; Normal libido Menopausal Symptoms:No menopausal symptoms; Normal vaginal lubrication Psychological symptoms:No depression; No anxiety; No PMDD Preventive measures:Encourage self breast examination; Encourage regular exercise; Encourage no tobacco use; Encourage regular mammograms starting age 40; History of abnormal pap smear/cervical dysplasia IGOR [facility] [address], [place], [address], [facility] 01/11/2021 13:14:38 11/26/2021 text/html , presents f or BC consult.Has been taking cyclic provera due to irregular menses. Was considering fertility but now has decided she no longer wants to pursue a future and would like BC. Was on an OCP in the past and would like to try that again. NOT interested in IUD or implants.Denies hx of DVT/PE, HTN, stroke/IN, cancer, liver disease, or migraine with auraShe is a NON-smokerMedical hx: Anxiety/depression IGOR Valles [address], [place], [address], [facility] 11/26/2021 17:58:34 02/26/2022 text/html Patient presents for med checkHappy with OCP!No negative SE! Would like to continueNo new medical changes IGOR [address], [place], [address], [facility] 02/26/2022 17:32:51 03/25/2023 text/html Annual GYNReport ed bypatient.History:no gynecologic complaints Menstrual cycle:Normal menses Urinary symptoms:No hematuria; No incontinence Vulva:No genital lesion Vagina:Normal vaginal discharge Breast:No breast pain; No breast lump; No nipple discharge Current Contraception:Satisf ied with current contraception; Oral contraceptives Sexual complaints:No sexual complaints; No pain during intercourse; Normal libido Menopausal Symptoms:No menopausal symptoms; Normal vaginal lubrication Psychological symptoms:No depression; No anxiety; No PMDD Preventive measures:Encourage self breast examination; Encourage regular exercise; Encourage no tobacco use; Encourage regular mammograms starting age 40 Lu Suarez BRIE- [address], [place], [address], [facility] 03/25/2023 09:58:37 OBGyn Episode Ob Episode Information Episode Created Date Number of Fetuses Patient Bloodtype Patient rh Status Prepregnancy Weight lbs Domestic Partner Domestic Partner Phone Father Name Exhibition Designer Status 11/29/19 20 1 CLOSED Fetus Data First Name Last Name Admitted to NICU Weight (g) Sex Living Outcome Pediatric Complications Fetus ID Race Codes Race Delivery Type 3373.36 3704 F Full Term 3505 Vaginal Delivery Grant Calculation Initial Grant Date Initial Exam Date Initial Exam Provider Initial Ultrasound Date Last Menstrual Period Date Ultra Sound Weeks Gestation 0 Eighteen To Twenty Week Grant Update Ultra Sound Date Fundal Height At Umbil Quickening Date Ultra Sound Latest Weeks Gestation Final Grant Confirmed By Final Grant Confirmed Date Final Grant Date Ultra Sound Latest Days Gestation 0 0 Menstrual History Last Menstrual Date Menses Monthly On Bcp Conception Prior Menses Frequency Hcg Plus Date Menarche Onset Age Delivery Information Delivery Date Delivery Type Labor Anesthesia Weeks Gestation Incision Type Labor Labor Length Hrs Delivered By Post Complications Tubal Sterilization Discharge Date Comments 3 39 Discharge Information Feeding Method Contraceptive Method Maternal HG B and HCT Levels Ob Episode Information Episode Created Date Number of Fetuses Patient Bloodtype Patient rh Status Prepregnancy Weight lbs Domestic Partner Domestic Partner Phone Father Name Exhibition Designer Status 11/29/19 20 1 CLOSED Fetus Data First Name Last Name Admitted to NICU Weight (g) Sex Living Outcome Pediatric Complications Fetus ID Race Codes Race Delivery Type 3543.46 0704 F Full Term 3503 Vaginal Delivery Grant Calculation Initial Grant Date Initial Exam Date Initial Exam Provider Initial Ultrasound Date Last Menstrual Period Date Ultra Sound Weeks Gestation 0 Eighteen To Twenty Week Grant Update Ultra Sound Date Fundal Height At Umbil Quickening Date Ultra Sound Latest Weeks Gestation Final Grant Confirmed By Final Grant Confirmed Date Final Grant Date Ultra Sound Latest Days Gestation 0 0 Menstrual History Last Menstrual Date Menses Monthly On Bcp Conception Prior Menses Frequency Hcg Plus Date Menarche Onset Age Delivery Information Delivery Date Delivery Type Labor Anesthesia Weeks Gestation Incision Type Labor Labor Length Hrs Delivered By Post Complications Tubal Sterilization Discharge Date Comments 6 39 Discharge Information Feeding Method Contraceptive Method Maternal HG B and HCT Levels Ob Episode Information Episode Created Date Number of Fetuses Patient Bloodtype Patient rh Status Prepregnancy Weight lbs Domestic Partner Domestic Partner Phone Father Name Exhibition Designer Status 11/29/19 20 1 CLOSED Fetus Data First Name Last Name Admitted to NICU Weight (g) Sex Living Outcome Pediatric Complications Fetus ID Race Codes Race Delivery Type 2664.85 3 F Prematur e 3504 Vaginal Delivery Grant Calculation Initial Grant Date Initial Exam Date Initial Exam Provider Initial Ultrasound Date Last Menstrual Period Date Ultra Sound Weeks Gestation 0 Eighteen To Twenty Week Grant Update Ultra Sound Date Fundal Height At Umbil Quickening Date Ultra Sound Latest Weeks Gestation Final Grant Confirmed By Final Grant Confirmed Date Final Grant Date Ultra Sound Latest Days Gestation 0 0 Menstrual History Last Menstrual Date Menses Monthly On Bcp Conception Prior Menses Frequency Hcg Plus Date Menarche Onset Age Delivery Information Delivery Date Delivery Type Labor Anesthesia Weeks Gestation Incision Type Labor Labor Length Hrs Delivered By Post Complications Tubal Sterilization Discharge Date Comments 9 36 Discharge Information Feeding Method Contraceptive Method Maternal HG B and HCT Levels Ob Episode Information Episode Created Date Number of Fetuses Patient Bloodtype Patient rh Status Prepregnancy Weight lbs Domestic Partner Domestic Partner Phone Father Name Exhibition Designer Status 10/12/19 21 1 CLOSED Fetus Data First Name Last Name Admitted to NICU Weight (g) Sex Living Outcome Pediatric Complications Fetus ID Race Codes Race Delivery Type , Spontane ous [id number] Grant Calculation Initial Grant Date Initial Exam Date Initial Exam Provider Initial Ultrasound Date Last Menstrual Period Date Ultra Sound Weeks Gestation 0 Eighteen To Twenty Week Grant Update Ultra Sound Date Fundal Height At Umbil Quickening Date Ultra Sound Latest Weeks Gestation Final Grant Confirmed By Final Grant Confirmed Date Final Grant Date Ultra Sound Latest Days Gestation 0 0 Menstrual History Last Menstrual Date Menses Monthly On Bcp Conception Prior Menses Frequency Hcg Plus Date Menarche Onset Age Delivery Information Delivery Date Delivery Type Labor Anesthesia Weeks Gestation Incision Type Labor Labor Length Hrs Delivered By Post Complications Tubal Sterilization Discharge Date Comments 7 Discharge Information Feeding Method Contraceptive Method Maternal HG B and HCT Levels
[2024-06-05 09:23] VITALS: BP 106/61; PULSE 69; RESP 16; TEMP 36.1; O2SAT 99
--- NOTE | 2024-06-05 09:44 | ED.URI ---
HPI - URI/Sore Throat General Chief Complaint: Upper Respiratory Infection Stated Complaint: sore throat and cough Time Seen by Provider: 06/05/24 09:44 Source: patient Mode of arrival: ambulatory Limitations: no limitations History of Present Illness HPI Narrative: Helen is a 38-year-old female here today with a lingering cough. She reports having flu A last week. She reports symptoms of lingering cough and lost voice only. She denies fever. She denies throat pain, and she denies Any other concerns today. Denies body aches or any other ongoing concerns. She is unaccompanied today. All systems reviewed and negative except as noted above. Related Data Home Medications ?Medication ?Instructions ?Recorded ?Confirmed ?Last Taken ?Type aripiprazole 5 mg tablet mg 06/05/24 Unknown History hydroxyzine pamoate 50 mg capsule mg 06/05/24 Unknown History Allergies Allergy/AdvReac Type Severity Reaction Status Date / Time No Known Allergies Allergy Verified 06/05/24 09:48 Review of Systems Review of Systems: CONSTITUTIONAL: Denies fever, chills, or sweats. EYES: Denies visual changes, redness, or discharge. ENT: Denies rhinorrhea, congestion, sore throat, or otalgia. Lost voice/ hoarse voice. CARDIOVASCULAR: Denies chest pain, palpitations, or edema. RESPIRATORY: Denies dyspnea. Reports cough. GASTROINTESTINAL: Denies abdominal pain, nausea, vomiting, or diarrhea. GENITOURINARY: Denies dysuria or hematuria. SKIN: Denies rash or itching. MUSCULOSKELETAL: Denies back pain, joint pain, or myalgia. NEUROLOGIC: Denies headache, numbness, or weakness. PSYCHIATRIC: Denies anxiety or depression. All other systems reviewed are negative, except as documented in HPI. [facility] Past Medical History Medical History Sore throat (~07/2018) Patellar dislocation right Generalized anxiety disorder Surgical History Surgical History History of foot surgery right Family History Family History Other Diabetes mellitus Hypertension Social History Social History (Reviewed 02/09/25 @ 10:15 by MARYA Turcios Smoking status: Never smoker Second hand tobacco smoke exposure: No Alcohol intake: never Substance use: never Exam Narrative: GENERAL: This is a well-nourished, well-developed patient, in no apparent distress. HEAD: normocephalic, atraumatic. EYES: Sclera clear/white. Vision is grossly intact. EARS: External ears normal, auditory canals clear and without drainage, TMs bilateral fluid noted without perforation. Hearing grossly intact. NOSE: External nose normal with no obvious nasal discharge, nares without redness, no rhinorrhea. THROAT: Mucous membranes moist, posterior pharynx erythematous and edematous. No exudate. NECK: Neck supple, non-tender without lymphadenopathy, masses or thyromegaly. CARDIOVASCULAR: Regular rate and rhythm without murmurs, gallops, or rubs. RESPIRATORY: Clear to auscultation. Breath sounds equal bilaterally. No wheezes, rales, or rhonchi. SKIN: warm, Dry, intact with no suspicious lesions or rash, good texture and turgor. NEURO: awake, alert, and oriented to person, place and time. There were no obvious focal neurologic abnormalities. EXTREMITIES: No joint tenderness, effusion, or edema noted. Course Course Level of Care: Express Care Visit Vital Signs Vital signs: Vital Signs Temperature 36.1 C L 06/05/24 09:23 Pulse Rate 69 06/05/24 09:23 Respiratory Rate 16 06/05/24 09:23 Blood Pressure 106/61 06/05/24 09:23 Pulse Oximetry 99 06/05/24 09:23 Oxygen Delivery Room Air 06/05/24 09:23 Temperature 36.1 C L 06/05/24 09:23 Pulse Rate 69 06/05/24 09:23 Respiratory Rate 16 06/05/24 09:23 Blood Pressure 106/61 06/05/24 09:23 Pulse Oximetry 99 06/05/24 09:23 Oxygen Delivery Room Air 06/05/24 09:23 Reviewed. MDM - URI/Sore Throat MDM Narrative Medical decision making narrative: Patient with recent flu A illness. Patient has lingering cough. Patient has voice hoarseness. Patient denies any throat pain. Patient with no exudate in throat. Patient does have swelling and erythema of throat. Will treat as viral pharyngitis and cough. Will treat with steroids due to swelling in throat. Patient is in no acute distress. Please be advised this is a medical document. It is intended for [id number] communication. It is written in medical language and may contain unfamiliar abbreviations or verbiage. Medical documents are intended to carry relevant information, facts as evident, and the clinical opinion of the practitioner at the time of the encounter. This report may have been done utilizing a voice recognition system. Attempts have been made to correct errors. However, there may be uncorrected grammatical, spelling, and recognition errors present. The file time of this note does not necessarily represent the time of service. Discharge Plan Discharge Clinical Impression: Pharyngitis Qualifiers: Qualified Code(s): J02.9 - Acute pharyngitis, unspecified Cough Qualifiers: Cough type: acute Qualified Code(s): R05.1 - Acute cough Patient Disposition: Home, Self-Care Condition: Stable Instructions: Antibiotic Form, Pharyngitis (ED), Acute Cough (ED) Additional Instructions: You were diagnosed today with viral pharyngitis And cough. Do not share eating or drinking utensils. Use good handwashing techniques. Use warm saltwater gargles for sore throat. He may also use throat lozenges. You can use [id number] acetaminophen or ibuprofen by mouth as needed and as directed on the packaging. Take medications as prescribed. Follow printed instructions provided here. Follow-up with your primary care provider Patient Language: Mauritian Prescriptions: New methylprednisolone [Medrol (Ashok)] 4 mg tablets,dose pack See Rx Instructions .ROUTE .COMPLEX Qty: 21 0RF Rx Instructions: for 6 days benzonatate 200 mg capsule 200 mg PO TID PRN (Reason: cough) Qty: 30 0RF No Action hydroxyzine pamoate 50 mg capsule aripiprazole 5 mg tablet alprazolam 0.25 mg tablet 0.25 mg PO DAILY PRN (Reason: anxiety) Qty: 30 5RF Rx Instructions: TAKE 0.5-1 TABLET BY ORAL ROUTE NEEDED FOR PANIC. sertraline 100 mg tablet 100 mg PO DAILY Qty: 90 1RF Rx Instructions: new dose Follow-up/Referrals: Ronak,MAURO Mai [Primary Care Provider] - Time of Disposition: 10:06
== END 2024-06-05 10:20 | disposition home or self-care (01) ==
PROVIDERS: Emergency Provider Nurse Practitioner; PCP Nurse Practitioner
DX: J02.9 Acute pharyngitis, unspecified (principal); R05.1 Acute cough; F41.9 Anxiety disorder, unspecified
CPT/HCPCS: 99213; G0463

== ENCOUNTER 2024-09-22 10:45 | Day surgery (SDC) | payer BC, SELFPAY ==
[2024-09-22] VITALS (10 sets, daily range): BP systolic 108–137; BP diastolic 60–74; PULSE 60–78; RESP 12–20; TEMP 36.4–37.3; O2SAT 97–100
--- NOTE | ~2024-09-22 | XR_ITS ---
EXAMINATION: XR retrograde pyelo w/stent LT DATE: 09/22/2024 15:48 INDICATION: Left internal ureteral stent placement TECHNIQUE: Fluoroscopic images from a left internal ureteral stent placement are submitted for review . 15 seconds of fluoroscopy time. FINDINGS: There is a left double-J internal ureteral stent projecting in expected position, with proximal [place] loop at the level of the renal pelvis and distal loop in the pelvis within the bladder lumen. IMPRESSION: 1. Left internal ureteral stent placement. Please refer to real-time procedural findings for detail s. Reviewed, dictated and finalized at location A. IMPRESSION: 1. Left internal ureteral stent placement. Please refer to real-time procedur al findings for details.
--- NOTE | ~2024-09-22 | CT_ITS ---
CLINICAL INDICATION: Left flank pain COMPARISON: 03/16/2008. TECHNIQUE: Multiple contiguous axial images of the abdomen and pelvis were performed without the admi nistration of intravenous contrast The dose-length product (DLP) was 1561.74 mGy-cm. Automated exposure control and iterative reconstruction technique were employed. FINDINGS/OBSERVATIONS: Visualized lower thorax: The bilateral lung bases are clear. The heart is of normal size, without pericardial effusion. Small hiatal hernia is present. Liver: The liver demonstrates homogeneous attenuation and is enlarged measuring 25 cm in longitudinal dimens ion. Gallbladder and biliary system: The gallbladder is only minimally distended, and otherwise unremarkable. Pancreas: Limited evaluation of the pancreas secondary to the lack of intravenous contrast. Spleen: The spleen demonstrates homogeneous attenuation and is not enlarged. Kidneys: Global enlargement of the left kidney with left-sided hydroureteronephrosis extending to the distal l eft ureter where a 4 mm calculus is identified. The right kidney is unremarkable, without hydronephrosis. 2 mm nonobstructing calculus within the lower pole of the right kidney. 4 mm nonobstructing calculus within the upper pole of the right kidney. Adrenal glands: Unremarkable. Gastrointestinal tract: Trace fecal stasis within the colon. Appendix: The air-filled appendix is of normal caliber (axial series, images 121 through 142). Vasculature: Unremarkable. Lymph nodes: Limited evaluation without intravenous contrast. Pelvic structures: The bladder is decompressed limiting its evaluation. The uterus is anteverted and anteflexed and otherwise unremarkable. Body wall and musculoskeletal: Small fat-containing umbilical hernia. No significant degenerative disease within the lower thoracic or lumbosacral spine. IMPRESSION: Left-sided hydroureteronephrosis secondary to a 4 mm calculus at the left UVJ. Multiple nonobstructing stones within the right kidney. Significant hepatomegaly, an interval change from 2007 examination. Reviewed, dictated and finalized at location A. IMPRESSION: Left-sided hydroureteronephrosis secondary to a 4 mm calculus at the left UVJ. Multiple nonobstructing stones within the right kidney. Significant hepatomegaly, an interval change from 2008 examination.
--- OUTSIDE RECORDS SUMMARY | 2024-09-22 10:50 | XMS_ITS | Data Portability ---
Author Organization [facility] [place] Address [address] [place] [address] Care Team Providers Care Metal Alloy Scientist Name Role Phone MICHAEL HILL Primary Care [...] None recorded. Imaging None recorded. Medication Orders Blisovi Fe 1/20 (28) 1 mg-20 mcg (21)/75 mg (7) tablet 2022 023 [facility] #[id number], [address], [place], [id number], 09:51:35 Blisovi Fe 1/20 (28) 1 mg-20 mcg (21)/75 mg (7) tablet 2021 022 [facility] #[id number], [address], [place], [id number], 2 17:32:38 Loestrin Fe 05/16 (28-Day) 1 mg-20 mcg (21)/75 mg (7) tablet [address] [id number], [address], [place], [place], [id number], 2 18:19:38 Provera 10 mg tablet 2020 021 [email or web address] [id number], [address], [place], [place], [id number], 3 09:48:43 Patient TargetsNo targets recorded. Patient InstructionsNo instructions recorded. Reason for Referral None Reported. 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 Not Available [facility] (Lab) [address], [place], [address], 01/15/2021 18:40:45 Result Notes None recorded. Problems Name Problem SNOMED Code Status Onset Date Resolution Date Notes Provider Name and Address Organization Details Recorded Time Insertio n of intraute rine contrace ptive device Completed 201310/11/2020 INSERTIO N OF IUD;Matthew rded Elsewher e: No Locat ion: Mattiesharonda gordon [facility] S ource: EHR Trolley Coach Driver isabel: N Practi ce ID: 0001 Jonny lable Time: 08:00:00 AM Noreen Mckeon [facility] 1 12:22:[address] Concept Completed 201510/11/2020 Decrease d movement s, third trimeste r, unsp;Rec orded Elsewher e: No Locat ion: [facility] S ource: EHR Trolley Coach Driver isabel: N Wayneti ce ID: 0001 Jonny lable Time: 01:18:00 PM Noreen Mckeon [facility] 1 12:22:35 Irregula r intermen strual bleeding [id number] Completed 201410/11/2020 Metrorrh agia;Rec orded Elsewher e: No [facility]: E[facility] Trolley Coach Driver isabel: N Wayneti ce ID: 0001 Jonny lable Time: 08:45:00 AM Noreen Mckeon [facility] 1 12:22:02 Normal pregnanc y in multigra alpa [id number] Completed 201510/11/2020 Encounte r for supervis ion of other normal pregnanc y, 1st trimeste r;Record ed Elsewher e: No [facility] S ource: EHR Trolley Coach Driver isabel: N Practi ce ID: 0001 Jonny lable Time: 09:15:00 AM Noreen Mckeon [facility] 1 12:22:10 Human papillom avirus deoxyrib onucleic acid detected , high risk on cervical specimen [id number] Completed 201510/11/2020 Cervical high risk HPV DNA test positive ;Recorde d Elsewher e: No Locat ion: [facility] S ource: EHR Trolley Coach Driver isabel: N Practi ce ID: 0001 Jonny lable Time: 11:10:30 AM Noreen Mckeon [facility] 1 12:21:59 Hemorrha gic complica tion of pregnanc y [id number] Completed 201510/11/2020 Other hemorrha ge in early pregnanc y;Record ed Elsewher e: No Locat ion: [facility] S ource: EHR Trolley Coach Driver isabel: N Practi ce ID: 0001 Jonny lable Time: 09:00:00 AM Noreen Mckeon [facility] 12:21:55 Secondar y amenorrh ea [id number] Completed 201510/11/2020 Secondar y amenorrh ea;Recor ded Elsewher e: No Locat ion: [facility] S ource: EHR Trolley Coach Driver isabel: N Practi ce ID: 0001 Jonny lable Time: 09:15:00 AM Noreen Mckeon [facility] 12:22:[address] Concept Completed 201710/11/2020 Encntr for general adult medical exam w/o abnormal findings ;Recorde d Elsewher e: No Locat ion: [facility] S ource: EHR Trolley Coach Driver isabel: N Practi ce ID: 0001 Jonny lable Time: 09:30:00 AM Noreen Mckeon [facility] 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 12:22:38 Dyspareu fernando [id number] Completed 201410/11/2020 Dyspareu fernando;Matthew rded Elsewher e: No Locat ion: [facility] S ource: EHR Trolley Coach Driver isabel: N Practi ce ID: 0001 Jonny lable Time: 02:00:00 PM Noreen dorsey [facility] 12:21:37 Gestatio n period, 10 weeks [id number] Completed 201510/11/2020 10 weeks gestatio n of pregnanc y;Practi ce ID: 0001 Noreen dorsey [facility] 12:21:46 Pregnanc y test negative [id number] Completed 201510/11/2020 Encounte r for pregnanc y test, result negative ;Practic e ID: 0001 Noreen Mckeon [facility] 12:22:19 Pregnanc y detectio n examinat ion Completed 201510/11/2020 Encounte r for pregnanc y test, result positive ;Practic e ID: 0001 Noreen dorsey [facility] 12:22:17 Atypical squamous cells of undeterm ined signific ance on cervical Papanico laou smear [id number] Completed 201510/11/2020 Atyp squam cell of undet signfc cyto smr crvx (ASC-US) ;Practic e ID: 0001 Noreen dorsey [facility] 12:21:23 Chronic intersti tial cystitis [id number] Completed 201410/11/2020 Chronic intersti tial cystitis ;Practic e ID: 0001 Noreen dorsey [facility] 12:21:26 Removal of intraute rine device Completed 201410/11/2020 Encounte r for removal of intraute rine contrace ptive device;Maura rosales ID: 0001 Noreen Mckeon [facility] 12:22:27 Female genital organ symptoms 054712028 Completed 201410/11/2020 Pelvic Pain;Pra ctice ID: 0001 Noreen Mckeon [facility] 12:21:43 Acetonur ia [id number] Completed 201410/11/2020 Acetonur ia;Pract ice ID: 0001 Noreen Mckeon [facility] 12:21:16 Screenin g for malignan t neoplasm of cervix Completed 201310/11/2020 Pap Smear;Pr actice ID: 0001 Noreen Mckeon [facility] 12:22:30 Family planning surveill ance Completed 201310/11/2020 Contrace ptive surveill ance, unspecif ied;Prac sundar ID: 0001 Noreen Mckeon [facility] 12:21:41 Adult health examinat ion Completed 201410/11/2020 Routine general medical examinat ion at a health care facility ;Practic e ID: 0001 Noreen Mckeon [facility] 12:21:20 Speciali zed medical examinat ion Completed 201410/11/2020 Routine gynecolo gical examinat ion;Prac sundar ID: 0001 Noreen Mckeon [facility] 12:22:40 Postpart um care Completed 201210/11/2020 Postpart um follow-u p;Practi ce ID: 0001 Noreen Mckeon [facility] 12:22:15 Cyst of ovary [id number] Completed 201210/11/2020 OVARIAN CYST;Pra ctice ID: 0001 [facility] 12:21:32 Radiolog y result abnormal [id number] Completed 201210/11/2020 Nonspeci fic abnormal findings on radiolog ical and other examinat ion of abdomina l area, includin g retroper itoneum; Practice ID: 0001 [facility] 12:22:25 Evaluati on finding Completed 201610/11/2020 Unsp abnormal cytolog findings in specmn from cervix uteri;Pr actice ID: 0001 [facility] 12:21:38 Oligohyd ramnios with antenata l problem [id number] Completed 201210/11/2020 Oligohyd ramnios, antepart um;Pract ice ID: 0001 [facility] 12:22:12 Gestatio n period, 32 weeks [id number] Completed 201510/11/2020 32 weeks gestatio n of pregnanc y;Practi ce ID: 0001 [facility] 12:21:48 Complica tion related to pregnanc y Completed 201210/11/2020 Weight Insuffic ient Antepart um;Pract ice ID: 0001 [facility] 12:21:28 Routine antenata l care Completed 201210/11/2020 Supervis ion of other normal pregnanc y;Practi ce ID: 0001 Noreen dorsey [facility] 12:22:29 Poor growth affectin g manageme nt 136154555 Completed 201210/11/2020 GROWTH POOR SGA;Prac sundar ID: 0001 Noreen dorsey [facility] 06/17/202 1 12:22:13 Ultrason ography Completed 201210/11/2020 Antenata l screenin g for malforma tion using ultrason ics;Matthew rded Elsewher e: No [facility] S ource: EHR Trolley Coach Driver isabel: N Practi ce ID: 0001 Jonny lable Time: 04:45:00 PM Noreen Mckeon [facility] 1 12:22:50 Antenata l screenin g Completed 201210/11/2020 Antenata l screenin g for malforma tion using ultrason ics;Matthew rded Elsewher e: No Locat ion: [place] [facility] S ource: EHR Trolley Coach Driver isabel: N Practi ce ID: 0001 Jonny lable Time: 04:45:00 PM Noreen Mckeon [facility] 1 12:21:21 Congenit al malforma tion [id number] Completed 201210/11/2020 Antenata l screenin g for malforma tion using ultrason ics;Matthew rded Elsewher e: No [facility] S ource: EHR Trolley Coach Driver isabel: N Practi ce ID: 0001 Jonny lable Time: 04:45:00 PM Noreen Mckeon [facility] 1 12:21:30 Nausea and vomiting [id number] Completed 201210/11/2020 Nausea And Vomiting ;Recorde d Elsewher e: No Locat ion: [facility] S ource: EHR Trolley Coach Driver isabel: N Practi ce ID: 0001 Jonny lable Time: 09:00:00 AM Noreen Mckeon [facility] 1 12:22:09 Excessiv e growth affectin g manageme nt of mother [id number] Completed 201210/11/2020 GROWTH LARGE LGA;Prac sundar ID: 0001 Noreen Mckeon [facility] 1 12:21:40 Prematur e rupture of membrane s with antenata l problem [id number] Completed 201210/11/2020 Prematur e rupture of membrane s, antepart um;Pract ice ID: 0001 Noreen Mckeon [facility] 12:22:23 Gestatio n period, 34 weeks 73255971 Completed 201510/11/2020 34 weeks gestatio n of pregnanc y;Practi ce ID: 0001 Noreen Mckeon [facility] 12:21:50 Medical examinat ion for suspecte d conditio n Completed 201510/11/2020 Encntr for susp prob w amnio cavity and membrane ruled out;Prac sundar ID: 0001 Noreen Mckeon [facility] 12:22:07 Past pregnanc y history of gestatio nal trophobl astic disease 732726699 Completed 201510/11/2020 Personal history of comp of preg, chldbrth and the puerp;Pr actice ID: 0001 Noreen Mckeon [facility] 12:21:57 Pregnanc y test positive 171053236 Completed 201110/11/2020 Positive Pregnanc y Test;Pra ctice ID: 0001 Noreen Mckeon [facility] 12:22:20 Body mass index 30+ - obesity 589573146 Completed 201510/11/2020 Body mass index (BMI) 33.0-33. 9, adult;Re corded Elsewher e: No Locat ion: Marissa leyva [facility] S ource: EHR Trolley Coach Driver isabel: N Practi ce ID: 0001 Jonny lable Time: 09:15:00 [address] [facility] 12:21:24 Complica tion of pregnanc y, childbir th and/or puerperi [id number] Completed 201510/11/2020 Oth diseases and conditio ns compl preg/chl dbrth;Pr actice ID: 0001 Noreen dorsey [facility] 12:22:44 Gestatio n period, 38 weeks [id number] Completed 201510/11/2020 38 weeks gestatio n of pregnanc y;Practi ce ID: 0001 Noreen dorsey [facility] 12:21:51 Lacerati on of female perineum Completed 201510/11/2020 First degree perineal lacerati on during delivery ;Practic e ID: 0001 Noreen dorsey [facility] 12:22:04 Single live from singleto n pregnanc y [id number] Completed 201510/11/2020 Single live ;Pr actice ID: 0001 Noreen dorsey [facility] 12:22:33 Delivery normal [id number] Completed 201210/11/2020 Normal delivery ;Practic e ID: 0001 Noreen dorsey [facility] 12:21:35 Gestatio n period, 39 weeks [id number] Completed 201510/11/2020 39 weeks gestatio n of pregnanc y;Practi ce ID: 0001 Noreen dorsey [facility] 12:21:53 Lochia finding Completed 201510/11/2020 Encounte r for routine postpart um follow-u p;Practi ce ID: 0001 Noreen dorsey [facility] 12:22:05 Gestatio n less than 9 weeks [id number] Completed 201510/11/2020 Less than 8 weeks gestatio n of pregnanc y;Record ed Elsewher e: No Locat ion: [facility] S ource: EHR Trolley Coach Driver isabel: N Practi ce ID: 0001 Jonny lable Time: 09:15:00 AM Noreen Mckeon [facility] 12:21:45 Acute upper respirat ory infectio n [id number] Completed 201210/11/2020 Acute upper respirat ory infectio ns of unspecif ied site;Pra ctice ID: 0001 Noreen Mckeon [facility] 12:21:18 Threat ed prematur e labor - not delivere d [id number] Completed 201210/11/2020 [facility] ed prematur e labor, antepart um;Pract ice ID: [address] [facility] 12:22:42 Problem Notes None recorded. Procedures Surgical History Date Name Laterality Status Provider Name and Address Organization Details Recorded Time Date of Last Pap Smear completed Carly Nation [facility] 03/25/2023 09:26:31 procedure on foot completed [facility] 2019 13:10:31 kidney stone analysis completed [facility] 2019 13:10:44 Dilation and Curettage completed [facility] 2019 13:10:50 Imaging Results None recorded. [...] Prescrib ed Elsewher e: No Locat ion: [facility] M odify By: jaiden recinos DateTime : 08/31/19 13 09:15:00 AM Not Available Not Available Not Available trazodone 50 mg tablet TAKE 1 TABLET BY MOUTH AT BEDTIME FOR 15 DAYS NEEDED active Not Available Not Available No t Available fluconazo le 150 mg tablet 03/25 completed Not Available Not Available Not Available benzonata te 200 mg capsule TAKE 1 CAPSULE BY MOUTH THREE TIMES DAILY NEEDED FOR COUGH active Not Available Not Available No t Available Claritin 10 mg tablet take 1 tablet by oral route every day 2018 active Prescrib ed Elsewher e: Yes Loca tion: Marissa leyva [facility] odify By: samuel recinos DateTime : 09/23/19 19 03:30:00 PM Not [...] Elsewher e: No Locat ion: Marissa leyva [facility] odify By: jaiden recinos DateTime : 07/17/19 13 09:00:00 AM Not [...] Prescrib ed Elsewher e: No [facility] By: raymond Guthrie nter DateTime : 07/11/19 17 09:30:00 AM Not Available Not Available Not Available methylpre dnisolone 4 mg tablets in a dose pack FOLLOW PACKAGE DIRECTIO NS active Not Available Not Available No t Available Vitamin D2 1,250 mcg (50,000 unit) capsule take 1 capsule (13446YR ITS) by oral route every week 12/20 completed Prescrib ed Elsewher e: No Locat ion: Marissa leyva [facility] odify By: kpanyik Zaida mart DateTime : 09/13/19 16 11:56:32 AM Not [...] Elsewher e: Yes Loca tion: Marissa leyva [facility] odify By: jaiden recinos DateTime : 01/07/20 13 08:45:00 AM Not Available Not Available Not Available Triveen-D uo DHA 29 mg-1 mg-400 mg oral pack take 1 by Oral route 09/22 completed Prescrib ed Elsewher e: No [facility] By: samuel recinos DateTime : 03/21/20 15 03:45:00 PM Not Available Not Available Not Available LEGAL ENTITY CONTROLLER-PNV-DH A 28 mg iron-1 mg-200 mg capsule 11/26 completed Not Available Not Available Not Available Blisovi Fe 05/16 (28) 1 mg-20 mcg (21)/75 mg (7) tablet TAKE 1 TABLET BY MOUTH EVERY DAY active Not Available Not Available No t Available Blisovi 24 Fe 1 mg-20 mcg (24)/75 mg (4) tablet TAKE 1 TABLET DAILY ( #28 ONLY UNTIL PATIENT IS SEEN IN OFFICE FOR APPOINTM ENT) active Not Available Not Available No t Available Afluria Qd 2019- (36 mos up)(PF)60 mcg (15 mcg x4)/0.5 mL IM syringe ADM 0.5ML IM UTD 03/29 completed Not Available Not Available Not Available Vitals Date Recorded Body height Body mass index (BMI) Body weight Systolic blood pressure Diastolic blood pressure Provider Name and Address Organization Details Last Updated DateTime 10/11/2020 175.26 cm 39.3 kg/m2 200584.8 5 g 138 mm[Hg] 79 mm[Hg] [facility] 1 12:47:01 Date Recorded Body height Body mass index (BMI) Body weight Systolic blood pressure Diastolic blood pressure Provider Name and Address Organization Details Last Updated DateTime 11/26/2021 174.63 cm 43.5 kg/m2 144457.6 9 g 121 mm[Hg] 81 mm[Hg] [facility] 2 16:22:05 Date Recorded Body height Body mass index (BMI) Body weight Systolic blood pressure Diastolic blood pressure Provider Name and Address Organization Details Last Updated DateTime 01/11/2021 174.63 cm 40.5 kg/m2 893894.1 2 g 126 mm[Hg] 74 mm[Hg] [facility] 1 12:16:46 Date Recorded Body height Body mass index (BMI) Body weight Systolic blood pressure Diastolic blood pressure Provider Name and Address Organization Details Last Updated DateTime 02/26/2022 174.63 cm 41.9 kg/m2 203495.0 5 g 121 mm[Hg] 82 mm[Hg] [facility] 2 17:23:47 Date Recorded Body height Body mass index (BMI) Body weight Systolic blood pressure Diastolic blood pressure Provider Name and Address Organization Details Last Updated DateTime 03/25/2023 174.63 cm 41.9 kg/m2 255968.0 5 g 107 mm[Hg] 72 mm[Hg] Carly Nation [facility] 3 09:34:27 Social History Question Answer Notes LastModified by Organizat ion Details LastModified Time Tobacco Smoking Status Never Smoker Cali Samuels sunita, [facility] 02/26/2022 17:16:49 Do You Have An Advance Directive? No Information n ot available 10/11/2020 How Many Years Have You Consumed Alcohol? 12 Information not available 10/11/2020 Are You Blind Or Do You Have Difficulty Seeing? No Information n ot available 10/11/2020 What Is Your Level Of Caffeine Consumption? Moderate Information not available 10/11/2020 How Much Tobacco Do You Chew? None Information not available 10/11/2020 In The 14 Days Before Symptom Onset, Have You Had Close Contact With A Laboratory-confirm ed COVID-19 While That Case Was Ill? No Information n ot available 10/11/2020 In The 14 Days Before [...] Of Diet Are You Following? REGULAR Information n ot available 10/11/2020 What Is The Highest Grade Or Level Of School You Have Completed Or The Highest Degree You Have Received? [id number] Information not available 10/11/2020 Are There Any [...] IV Drugs? No Information not available 10/11/2020 Do You Have Difficulty Walking Or Climbing Stairs? No Information not available 02/26/2022 Sex: Unknown Functional Status Question Answer Note LastModified by Organizat ion Details LastModified Time Do you use any illicit or recreational drugs? No Information not available 10/11/2020 What is your level of alcohol consumption? Occasional Information not available 10/11/2020 Are you able to walk? YESWOREST Information not available 10/11/2020 Are you able to care for yourself? 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 No [email or web address] Information not available 02/26/2022 What is your exercise level? Moderate Information not available 10/11/2020 Mental Status Question Answer Note LastModified by Organization D etails LastModified Time Do you feel stressed (tense, restless, nervous, or anxious, or unable to sleep at night)? [id number] Information not available 10/11/2020 Family History Relationship Description Onset Age of this Age Resolved Age Notes LastModified by Organization Details LastModified Time Mother Diabetes mellitus [email or web address] Not available 2019 13:09:21 Mother Uterine fibroid polyp [email or web address] Not available 2021 17:16:49 Maternal Grandmother Disorder of thyroid gland [email or web address] Not available 2019 13:09:27 Maternal Grandfather Carcinoma in situ of lung [email or web address] Not available 05/2021 17:16:49 Maternal Aunt Cyst of ovary Not available 2021 17:16:49 Medical History Condition [...] SNOMED-CT Code Diagnosis ICD10 Code Diagnosis Note [id number] Lu Suarez [facility] [address] [address] 2019 13:01:45 2019 13:40:35 Gynecologic examination 67311066 Z01.419 Take Calcium with Vitamin D 1200mg [...] today's plan if desired. Secondary amenorrhea 156 076379 N91.1 No period since 07/06/2019 after stopping OCP. Wants to try for another baby. Neg Hx irregular menses in the past. [id number] Cuate Rockwell MD [place] [address],[place] [address] 12/20/2019 09:52:17 12/20/2019 10:35:42 Amenorrhea 15613962 N91.2 [id number] Lu Suarez [facility] [address],[place] [address] 12/20/2019 09:52:34 12/20/2019 11:08:17 Secondary dysmenorrhea 34168999 N94.5 TVUS reviewed. Discussed Provera Challenge. Agreed to this trial. Will contact pt if further recommenda tions after review of US are received. If provera challenge failed then consider estrogen/p rogesteron e challenge. RTO x 2wks Time spent in visit is a total of 15 mins with at least 50% of visit consisting of counseling and review of plan of care. [id number] Lu Suarez [facility] [address],[place] [address] 01/03/2020 11:11:53 01/03/2020 11:36:28 Secondary dysmenorrhea 70555209 N94.5 Since she was successful on provera [...] counseling and review of plan of care. [id number] Lu Suarez [facility] [address],[place] [address] 03/29/2020 10:06:35 03/29/2020 10:35:29 Secondary amenorrhea 975345258 N91.1 Did well on provera challenge LINO [...] her. Body mass index 30+ - obesity 302300757 Z68.39 Today we also counseled on diet/exerc ise changes to help lipid profile and possibly assist in regulating ovulation so periods resume as before. She is working on this with her spouse who is also in the process of making changes. Will continue to make changes. Offered referral nutritioni st/dietici an moving forward. [id number] Lu Suarez [facility] [address],[place] [address] 10/11/2020 12:38:42 10/11/2020 13:05:55 Secondary amenorrhea 276150782 N91.1 DOing well on monthly provera for [...] this patient s visit, including available hand nurse navigator upon arrive, temperatur e check and being asked a series of screening questions. All staff wore face coverings during this encounter, as well as provided additional cleaning and sanitizing of all surfaces, including countertop s, pens, chairs, door handles, light switches, etc, prior to and following the patient s visit. [id number] [facility] [address] [address] 01/11/2021 11:57:38 01/11/2021 13:17:37 Gynecologic examination 38277962 Z01.419 Take Calcium with Vitamin D 1200mg [...] or if anything changes prior to this. [id number] IGOR Valles [place] [address] [address] 11/26/2021 16:10:20 11/26/2021 18:01:17 Contraception care management [id number] Z30.9 Discussed all control options in great [...] counseling and review of plan of care. [id number] Laura Ellis BRIE [place] [address],[place] [address] 02/26/2022 17:15:43 02/26/2022 17:36:32 Contraception care management [id number] Z30.9 Patient is here today for a [...] monthsRTC for WWE as she is due [id number] IGOR Smith[facility] [address],[place] [address] 03/25/2023 09:27:23 03/25/2023 10:00:03 Gynecologic examination [id number] Z01.419 Z11.51 Take Calcium with Vitamin D [...] Routine Labs PCP Contracept ion care management [id number] Z30.9 Happy on OCPRF sent x 1yr Health Concerns Section Related Observation LastModified by Organization Detai ls LastModified Time None Recorded Concern Status LastModified by Organization Details LastModified Time None Recorded Advance Directives Directive N: Payers Encounter Date Sequence Insurance Name Policy Number Policy Fernandez Covered Member ID Fernandez Member ID Guarantor Name 10/11/2020 1 [place] [id number] Jonatan [place] [id number] Helen R Harrington 01/11/2021 1 [place] [id number] Jonatan [place] [id number] Helen R Harrington 11/26/2021 1 [place] [id number] Jonatan [place] [id number] Helen R Harrington 02/26/2022 1 [place] [id number] Jonatan [place] [id number] Helen R Harrington 03/25/2023 1 [place] [id number] Jonatan Harrington [id number] Helenyesenia Harrington Notes Date Note Type Note Provider Name and Address Organization Details Recorded Time 10/11/2020 text/html Here for medicat ion check of Provera used for secondary amenorrhea. Lu Suarez BRIE- [address], [place], [address], [facility] 10/11/2020 13:02:02 01/11/2021 text/html Annual GYNReport [...] 42; History of abnormal pap smear/cervical dysplasia Lu Suarez BRIE- [address], [place], [address], [facility] 01/11/2021 13:14:38 11/26/2021 text/html , presents f or BC consult.Has been taking cyclic provera due to irregular menses. Was considering fertility but now has decided she no longer wants to pursue a future and would like BC. Was on an OCP in the past and would like to try that again. NOT interested in IUD or implants.Denies hx of DVT/PE, HTN, stroke/MN, cancer, liver disease, or migraine with auraShe is a NON-smokerMedical hx: Anxiety/depression [address], [place], [address], [facility] 11/26/2021 17:58:34 02/26/2022 text/html Patient presents for med checkHappy with OCP!No negative SE! Would like to continueNo new medical changes [address], [place], [address], [facility] 02/26/2022 17:32:51 03/25/2023 text/html Annual [...] use; Encourage regular mammograms starting age 40 IGOR Smith- [address], [place], [address], [facility] 03/25/2023 09:58:37 OBGyn Episode Ob Episode Information Episode Created Date Number of Fetuses Patient Bloodtype Patient rh Status Prepregnancy Weight lbs Domestic Partner Domestic Partner Phone Father Name Paper Sorter Status 11/29/19 20 1 CLOSED Fetus Data [...] Domestic Partner Domestic Partner Phone Father Name Paper Sorter Status 11/29/19 20 1 CLOSED Fetus Data [...] Domestic Partner Domestic Partner Phone Father Name Paper Sorter Status 11/29/19 20 1 CLOSED Fetus Data [...] Domestic Partner Domestic Partner Phone Father Name Paper Sorter Status 10/12/19 21 1 CLOSED Fetus Data First Name Last Name Admitted to NICU Weight (g) Sex Living Outcome Pediatric Complications Fetus ID Race Codes Race Delivery Type , Spontane ous [id number] Grant Calculation Initial Grant Date Initial Exam [...]
[2024-09-22 11:06] LABS: BEDSIDEPREGUCG Negative (Negative)
[2024-09-22 11:11] LABS: Basophils Percent Auto 0.3 % (0.2-1.2); Eosinophils Absolute Auto 0.2 K/mm3 (0-0.3); Eosinophils Percent Auto 1.1 % (0-4.4); Hematocrit 38.5 % (37.0-47.0); Hemoglobin 12.3 g/dL (12.0-15.0); Immature Granulocyte Absolute 0.03 K/mm3 (0.00-0.031); Immature Granulocyte Percent A 0.2 % (0-0.5); Lymphocytes Absolute Auto 2.66 K/mm3 (0.9-3.2); Lymphocytes Percent Auto 19.2 % (18.3-44.2); Mean Corpuscular HGB Conc 31.9 g/dl (32-36); Mean Corpuscular Volume 84.4 fl (80-100); Mean Platelet Volume 9.5 fl (7.4-10.4); Monocytes Absolute Auto 0.6 K/mm3 (0.1-0.6); Monocytes Percent Auto 4.5 % (2.6-8.5); Neutrophils Absolute Auto 10.3 K/mm3 (1.3-6.7); Neutrophils Percent Auto 74.7 % (45.5-73.1); Platelet Count Result 385 k/mm3 (150-375); Red Blood Count 4.56 M/mm3 (4.2-5.4); Red Cell Distribution Width 14.3 % (11.5-14.5); White Blood Count 13.8 K/mm3 (4.5-10.0)
[2024-09-22 11:12] LABS: Add Urine Microscopic? YES; Appearance Urine Cloudy (Clear); Bacteria Urine 2+ /hpf; Bilirubin Urine Negative (Negative); Blood Urine 2+ (Negative); Color Urine Yellow (Yellow); Glucose Urine UA Negative (Negative); Ketones Urine Trace mg/dL (Negative); Leukocyte Esterase Ur 2+ LEU/UL (Negative); Nitrate Urine Negative (Negative); Protein Urine 1+ mg/dL (Negative); RBC Urine 51-100 /hpf (0-2); Specific Grav Ur 1.029 (1.001-1.035); Squamous Epithelial Cell Urine Moderate /hpf (Few); WBC Urine 51-100 /hpf (0-3); pH Urine 5.5 (5.0-9.0)
[2024-09-22 11:20] LABS: Alanine Aminotransferase 15 U/L (6-35); Albumin Level 4.1 g/dL (3.5-5.1); Alkaline Phosphatase 92 U/L (38-126); Anion Gap 8 mmol/L (4-12); Aspartate Amino Transferase 20 U/L (14-36); Bilirubin,Total 0.4 mg/dL (0.2-1.3); Blood Urea Nitrogen 11 mg/dL (7-17); Carbon Dioxide 23 mmol/L (22-30); Chloride 107 mmol/L (98-107); Estimated CRCL calculation 104 ml/min; Estimated Glomerular Filt Rate > 60; Glucose 98 mg/dL (65-110); Potassium 4.1 mmol/L (3.4-5.0); Sodium 138 mmol/L (137-145)
[2024-09-22] MEDS: ONDANSETRON INJ 4 MG/2 ML VIAL IV PUSH (11:42)
[2024-09-22] MEDS: MORPHINE SULFATE (*CRX) 4 MG/ML INJ IV PUSH (11:43)
[2024-09-22] MEDS: SODIUM CHLORIDE 0.9% IV 1,000 ML 999 ML IV CONT (11:43)
--- NOTE | 2024-09-22 13:05 | ED.GENADULT ---
HPI - General Adult General Chief complaint: Abdominal Pain Stated complaint: left flan pain Time Seen by Provider: 09/22/24 11:30 History of Present Illness HPI narrative: patient is a 38-year-old female who presents emergency department with chief complaint of left flank pain. Patient reports that she has prior history of kidney stone that required removal in the past patient states she started having severe flank pain reports he is unable to get comfortable reports that around 5:00 a.m. is when her symptoms started. Related Data Home Medications ?Medication ?Instructions ?Recorded ?Confirmed ?Last Taken ?Type aripiprazole 5 mg tablet mg 06/05/24 Unknown History hydroxyzine pamoate 50 mg capsule mg 06/05/24 Unknown History Allergies Allergy/AdvReac Type Severity Reaction Status Date / Time No Known Allergies Allergy Verified 06/05/24 09:48 Review of Systems Review of Systems: A 10 system review of systems was completed on the patient and is negative except for what is stated in the HPI. Nursing and ancillary documentation was reviewed. [facility] Past Medical History Medical History Sore throat (~07/2018) Patellar dislocation right Generalized anxiety disorder Surgical History Surgical History History of foot surgery right Family History Family History Other Diabetes mellitus Hypertension Social History Social History Smoking status: Never smoker Second hand tobacco smoke exposure: No Alcohol intake: never Substance use: never Exam Narrative: GENERAL: Well-appearing, well-nourished, and in Mild acute pain distress. HEAD: Normocephalic, atraumatic. EYES: PERRLA and EOMI. ENT: Nares clear, no rhinorrhea or epistaxis. Mucous membranes moist. NECK: Supple. CHEST: Clear to auscultation. No respiratory distress. HEART: Regular rate and rhythm. No murmur heard. Normal peripheral pulses. ABDOMEN: Soft, nontender, nondistended, normal active bowel sounds. EXTREMITIES: Normal range of motion. No edema. SKIN: Warm, dry, no rash. NEURO: No focal deficits. Alert and oriented x3. PSYCH: Normal mood and affect. Course Vital Signs Vital signs: Vital Signs Temperature 36.4 C 09/22/24 10:45 Pulse Rate 77 09/22/24 10:45 Respiratory Rate 16 09/22/24 10:45 Blood Pressure 137/74 09/22/24 10:45 Pulse Oximetry 100 09/22/24 10:45 Temperature 36.4 C 09/22/24 10:45 Pulse Rate 77 09/22/24 10:45 Respiratory Rate 16 09/22/24 10:45 Blood Pressure 137/74 09/22/24 10:45 Pulse Oximetry 100 09/22/24 10:45 Medical Decision Making MDM Narrative Medical decision making narrative: differential diagnosis includes ureterolithiasis, UTI, pyelonephritis laboratory studies were obtained patient white count of 13.8 electrolytes are within normal limits urinalysis showed 51-100 red blood cells and white blood cells 2+ leukocyte esterase 2+ bacteria CT scan showed a 4 mm stone at the UVJ the case was discussed with urology due to the stone and possible infection. Plan will be to take patient to the operating room for stone retrieval Vital Signs Vital Signs: Vital Signs Temperature 36.4 C 09/22/24 10:45 Pulse Rate 77 09/22/24 10:45 Respiratory Rate 16 09/22/24 10:45 Blood Pressure 137/74 09/22/24 10:45 Pulse Oximetry 100 09/22/24 10:45 Temperature 36.4 C 09/22/24 10:45 Pulse Rate 77 09/22/24 10:45 Respiratory Rate 16 09/22/24 10:45 Blood Pressure 137/74 09/22/24 10:45 Pulse Oximetry 100 09/22/24 10:45 Lab Data 09/22/24 11:00 09/22/24 11:00 Labs: Lab Results 09/22/24 09/22/24 Range/Units 11:00 11:03 WBC 13.8 H (4.5-10.0) K/mm3 RBC 4.56 (4.2-5.4) M/mm3 Hgb 12.3 (12.0-15.0) g/dL Hct 38.5 (37.0-47.0) % MCV 84.4 (80-100) fl MCH 27.0 (26-34) pg MCHC 31.9 L (32-36) g/dl RDW 14.3 (11.5-14.5) % Plt Count 385 H (150-375) k/mm3 MPV 9.5 (7.4-10.4) fl Immature Gran % (Auto) 0.2 (0-0.5) % Neut % (Auto) 74.7 H (45.5-73.1) % Lymph % (Auto) 19.2 (18.3-44.2) % [place] % (Auto) 4.5 (2.6-8.5) % Eos % (Auto) 1.1 (0-4.4) % Baso % (Auto) 0.3 (0.2-1.2) % Lymph # (Auto) 2.66 (0.9-3.2) K/mm3 [place] # (Auto) 0.6 (0.1-0.6) K/mm3 Eos # (Auto) 0.2 (0-0.3) K/mm3 Baso # (Auto) 0.0 (0.0-0.1) K/mm3 Abs Immat Gran (auto) 0.03 (0.00-0.031) K/mm3 Absolute Neuts (auto) 10.3 H (1.3-6.7) K/mm3 Absolute Nucleated RBC 0.000 (0.0-0.012) K/mm3 Nucleated RBC % 0.0 (0.0-0.2) % Sodium 138 (137-145) mmol/L Potassium 4.1 (3.4-5.0) mmol/L Chloride 107 (98-107) mmol/L Carbon Dioxide 23 (22-30) mmol/L Anion Gap 8 (4-12) mmol/L BUN 11 (7-17) mg/dL Creatinine 0.95 (0.7-1.0) mg/dL Estim Creat Clear Calc 104 ml/min Estimated GFR > 60 (59 - ) Glucose 98 (65-110) mg/dL Calcium 9.0 (8.4-10.2) mg/dL Total Bilirubin 0.4 (0.2-1.3) mg/dL AST 20 (14-36) U/L ALT 15 (6-35) U/L Alkaline Phosphatase 92 (38-126) U/L Total Protein 7.0 (6.3-8.2) g/dL Albumin 4.1 (3.5-5.1) g/dL Urine Color Yellow (Yellow) Urine Appearance Cloudy H (Clear) Urine pH 5.5 (5.0-9.0) Ur Specific [place] 1.029 (1.001-1.035) Urine Protein 1+ H (Negative) mg/dL Urine Glucose (UA) Negative (Negative) mg/dL Urine Ketones Trace H (Negative) mg/dL Ur Blood (Man) 2+ H (Negative) Urine Nitrate Negative (Negative) Urine Bilirubin Negative (Negative) Urine Urobilinogen 1.0 (<2.0) mg/dL Leukocyte Esterase Rfl 2+ H (Negative) BRANDIN/UL Urine RBC 51-100 H (0-2) /hpf Urine WBC 51-100 H (0-3) /hpf Ur Squamous Epith Cells Moderate (Few) /hpf Urine Bacteria 2+ H /hpf Urine Casts 3-5 POC Urine HCG, Qual Negative (Negative) Discharge Plan Discharge Clinical Impression: Ureterolithiasis Patient Disposition: Still a Patient Condition: Stable
[2024-09-22] MEDS: HYDROmorphone HCL INJ (*CRX) 2 MG/ML VIAL 1 MG IV PUSH (13:15)
--- NOTE | 2024-09-22 15:13 | P.PNAN_ITS ---
Anes - Initial Pre Proc Eval Procedure: Operation Date: 09/22/24 15:00 Proposed Procedures p Cystoscopy, Left Ureteroscopy, Possible Left Retrograde Pyelogram, Possible Left Stone Extraction, Possible Left Stent Placement, Possible Holmium Laser - Yung Martinez MD Date/Time: 09/22/24 15:13 Surgeon: Yung Martinez MD Pre Op Diagnosis: left flan pain Patient Data Age: 38 Gender: F Height: 1.75 m Weight: 130 kg Last Vital Signs Temp 98.7 F 09/22/24 14:16 Pulse 70 09/22/24 14:16 Resp 16 09/22/24 10:45 BP 130/70 09/22/24 14:16 Pulse Ox 97 09/22/24 14:16 O2 Del Method Room Air 09/22/24 14:16 Allergies Allergy/AdvReac Type Severity Reaction Status Date / Time No Known Allergies Allergy Verified 09/22/24 14:15 Home Medications ?Medication ?Instructions ?Recorded ?Confirmed ?Type alprazolam 0.25 mg tablet 0.25 mg PO DAILY PRN anxiety #30 03/15/20 03/29/20 Rx tabs sertraline 100 mg tablet 100 mg PO DAILY #90 tabs 03/15/20 03/29/20 Rx aripiprazole 5 mg tablet mg 06/05/24 History benzonatate 200 mg capsule 200 mg PO TID PRN cough #30 caps 06/05/24 Rx hydroxyzine pamoate 50 mg capsule mg 06/05/24 History methylprednisolone 4 mg tablets in See Rx Instructions PO .COMPLEX 06/05/24 Rx a dose pack (Medrol (Ashok)) #21 ea Laboratory Tests 09/22/24 09/22/24 11:00 11:03 WBC 13.8 H K/mm3 (4.5-10.0) RBC 4.56 M/mm3 (4.2-5.4) Hgb 12.3 g/dL (12.0-15.0) Hct 38.5 % (37.0-47.0) MCV 84.4 fl (80-100) MCH 27.0 pg (26-34) MCHC 31.9 L g/dl (32-36) RDW 14.3 % (11.5-14.5) Plt Count 385 H k/mm3 (150-375) MPV 9.5 fl (7.4-10.4) Immature Gran % (Auto) 0.2 % (0-0.5) Neut % (Auto) 74.7 H % (45.5-73.1) Lymph % (Auto) 19.2 % (18.3-44.2) [place] % (Auto) 4.5 % (2.6-8.5) Eos % (Auto) 1.1 % (0-4.4) Baso % (Auto) 0.3 % (0.2-1.2) Lymph # (Auto) 2.66 K/mm3 (0.9-3.2) [place] # (Auto) 0.6 K/mm3 (0.1-0.6) Eos # (Auto) 0.2 K/mm3 (0-0.3) Baso # (Auto) 0.0 K/mm3 (0.0-0.1) Abs Immat Gran (auto) 0.03 K/mm3 (0.00-0.031) Absolute Neuts (auto) 10.3 H K/mm3 (1.3-6.7) Absolute Nucleated RBC 0.000 K/mm3 (0.0-0.012) Nucleated RBC % 0.0 % (0.0-0.2) Sodium 138 mmol/L (137-145) Potassium 4.1 mmol/L (3.4-5.0) Chloride 107 mmol/L (98-107) Carbon Dioxide 23 mmol/L (22-30) Anion Gap 8 mmol/L (4-12) BUN 11 mg/dL (7-17) Creatinine 0.95 mg/dL (0.7-1.0) Estim Creat Clear Calc 104 ml/min Estimated GFR > 60 (59 - ) Glucose 98 mg/dL (65-110) Calcium 9.0 mg/dL (8.4-10.2) Total Bilirubin 0.4 mg/dL (0.2-1.3) AST 20 U/L (14-36) ALT 15 U/L (6-35) Alkaline Phosphatase 92 U/L (38-126) Total Protein 7.0 g/dL (6.3-8.2) Albumin 4.1 g/dL (3.5-5.1) Urine Color Yellow (Yellow) Urine Appearance Cloudy H (Clear) Urine pH 5.5 (5.0-9.0) Ur Specific [place] 1.029 (1.001-1.035) Urine Protein 1+ H mg/dL (Negative) Urine Glucose (UA) Negative mg/dL (Negative) Urine Ketones Trace H mg/dL (Negative) Ur Blood (Man) 2+ H (Negative) Urine Nitrate Negative (Negative) Urine Bilirubin Negative (Negative) Urine Urobilinogen 1.0 mg/dL (<2.0) Leukocyte Esterase Rfl 2+ H BRANDIN/UL (Negative) Urine RBC 51-100 H /hpf (0-2) Urine WBC 51-100 H /hpf (0-3) Ur Squamous Epith Cells Moderate /hpf (Few) Urine Bacteria 2+ H /hpf Urine Casts 3-5 POC Urine HCG, Qual Negative (Negative) Patient hx anesthesia problems: none Family hx anesthesia problems: none Results Review: All pre-operative results and documents have been reviewed as part of the pre- operative evaluation. [facility] Past Medical History Medical History Sore throat (~07/2018) Patellar dislocation right Generalized anxiety disorder Surgical History Surgical History History of foot surgery right Family History Family History Other Diabetes mellitus Hypertension Social History Social History Smoking status: Never smoker Second hand tobacco smoke exposure: No Alcohol intake: never Substance use: never Anes - Eval Final PreProcedure Day of Procedure 09/22/24 15:13 Patient weight: morbidly obese Lungs: normal air movement Airway: Mallampati scale class II Last oral intake: >/= 8 hours ASA classification: III Emergent: no Anesthetic plan: proceed Anesthesia type and monitoring: general ETT and standard monitoring Results Review: All pre-operative results and documents have been reviewed as part of the pre- operative evaluation. BMI 42. Anxiety. Informed Consent: The patient's anesthetic plan and its attendant risks and benefits were discussed with the patient/family/POA. Questions were solicited and answers provided to the satisfaction of the patient/family/POA.
--- NOTE | 2024-09-22 15:13 | WPDURCON ---
Assessment and Plan Assessment and plan (1) Left ureteral calculus: Code(s): N20.1 - Calculus of ureter Status: Acute Assessment and Plan: Proceed with cystoscopy, left retrograde, left stent placement, possible ureteroscopy with stone extraction, laser Urology Consult Note HPI Date Seen: 09/22/24 Time Seen: 15:13 Requesting Physician: Yung Martinez MD Primary Care Provider: April Simons, HOSPITAL ADMISSIONS CLERK Consult Narrative Reason for consult: Left UVJ calculus 4 mm with renal colic Narrative: Helen Harrington is a 38 year old female who presented to the emergency room with left renal colic. CT findings were a 4 mm left UVJ stone. The ribbing problems consisting of pain and thus she is here for definitive treatment. Her urinalysis does have some mild white cells and some mild bacteria but she has been afebrile. Review of Systems Review of Systems: All systems reviewed & are unremarkable except as noted in HPI and below PMFSH Past Medical History Medical History Sore throat (~07/2018) Patellar dislocation right Generalized anxiety disorder Surgical History Surgical History History of foot surgery right Family History Family History Other Diabetes mellitus Hypertension Social History Social History Smoking status: Never smoker Second hand tobacco smoke exposure: No Alcohol intake: never Substance use: never Meds Home Medications and Allergies Home Medications ?Medication ?Instructions ?Recorded ?Confirmed ?Type alprazolam 0.25 mg tablet 0.25 mg PO DAILY PRN anxiety #30 03/15/20 03/29/20 Rx tabs sertraline 100 mg tablet 100 mg PO DAILY #90 tabs 03/15/20 03/29/20 Rx aripiprazole 5 mg tablet mg 06/05/24 History benzonatate 200 mg capsule 200 mg PO TID PRN cough #30 caps 06/05/24 Rx hydroxyzine pamoate 50 mg capsule mg 06/05/24 History methylprednisolone 4 mg tablets in See Rx Instructions PO .COMPLEX 06/05/24 Rx a dose pack (Medrol (Ashok)) #21 ea Allergies Allergy/AdvReac Type Severity Reaction Status Date / Time No Known Allergies Allergy Verified 09/22/24 14:15 Vital Signs Vital Signs - 24 hr 09/22/24 10:45 09/22/24 14:16 Temperature 36.4 C 37.1 C Pulse Rate 77 70 Respiratory Rate 16 Blood Pressure 137/74 130/70 Pulse Oximetry 100 97 Oxygen Delivery Room Air Exam Const: General: cooperative; No comfortable Resp: Effort & Inspection: normal respiratory effort Cardio: Rate: regular rate Rhythm: regular rhythm Results Labs 09/22/24 11:00 09/22/24 11:00 Labs: Short CBC 09/22/24 Range/Units 11:00 WBC 13.8 H (4.5-10.0) K/mm3 Hgb 12.3 (12.0-15.0) g/dL Hct 38.5 (37.0-47.0) % Plt Count 385 H (150-375) k/mm3 BMP 09/22/24 11:00 Sodium 138 Potassium 4.1 Chloride 107 Carbon Dioxide 23 BUN 11 Creatinine 0.95 Glucose 98 Calcium 9.0 Liver Function 09/22/24 Range/Units 11:00 Total Bilirubin 0.4 (0.2-1.3) mg/dL AST 20 (14-36) U/L ALT 15 (6-35) U/L Alkaline Phosphatase 92 (38-126) U/L Albumin 4.1 (3.5-5.1) g/dL Urine 09/22/24 Range/Units 11:00 Urine Color Yellow (Yellow) Urine Appearance Cloudy H (Clear) Urine pH 5.5 (5.0-9.0) Ur Specific [place] 1.029 (1.001-1.035) Urine Protein 1+ H (Negative) mg/dL Urine Glucose (UA) Negative (Negative) mg/dL
--- NOTE | 2024-09-22 15:15 | WPDHPUPDATE1 ---
History and Physical Update Update Date/Time: 09/22/24 15:15 History and Physical has been reviewed, including an updated exam of the patient. There are NO changes in the patient's condition. Risks, benefits, and alternatives have been discussed and questions answered. Patient agrees to proceed with procedure.
[2024-09-22] MEDS: ceFAZolin 3 GM/D5W 100 ML 100 ML IVPB (15:19)
[2024-09-22] MEDS: LIDOCAINE 2% GEL UROJET 10 ML PKG MUCOUS MEM (15:38)
--- NOTE | 2024-09-22 15:41 | S_PTH ---
PATIENT: Helen Harrington LOC: [facility] U#:[id number] AGE/SX: 38/F ROOM: RE09/22/[address]: Yung Martinez, : 1985 BED: DIS: 09/22/2024 SPEC #: [id number] RECD: 09/23/24 09:06 STATUS: LALITO RETiffanie #: [id number] RUSTAM: 09/22/24 15:[address]: Michelle,Yung Jaramillo DEPT: [facility] Surgical RECD BY: Lupe Jimenez ENTERED: 09/23/24 09:06 SP TYPE: Surgical OTHR DR: April Simons, BILINGUAL MANAGER Tissues: A - Stone Procedures: Gross Exam Level 1 Crystalline Analysis
--- NOTE | 2024-09-22 15:41 | P.OP_ITS ---
Procedure Note - Detailed Date of Procedure 09/22/24 Pre-op Diagnosis Left UVJ calculus 4 mm Post-op Diagnosis Same Procedure Performed Cystoscopy, left retrograde, left ureteroscopy with stone extraction, left stent placement 4.8 [place] contour Surgeon Yung Martinez MD Anesthesia General Description of Procedure Patient was taken to the operative suite correctly identified. Once anesthesia was obtained she was placed in dorsal lithotomy position and prepped and draped usual sterile fashion. Twenty-two [place] scope was inserted the bladder. There were no tumors noted. Left ureteral orifice was cannulated with a guidewire dilated with an 8/10 dilator. A rigid ureteral scope was inserted. The stone had been fragmented. Using escape basket retrieved the pieces and sent for analysis. Reinspection revealed no residual stone. Pyelogram was then performed confirm placement the stent. 4.8 [place] contour stent was then placed with the proximal end coiled in the renal pelvis and the distal in the bladder. 2% viscous lidocaine was inserted into the urethra patient is taken recovery stable condition. She will follow-up in a week's time for stent removal. This completes dictation. Please send a copy of op note to my office. Estimated Blood Loss 0 Drains Yes Packing No Pathology Yes Complications No immediate complications Condition Stable Disposition PACU
[2024-09-22] MEDS: LACTATED RINGERS 1,000 ML 30 ML IV CONT (15:45)
[2024-09-22] MEDS: oxyCODONE HCL (*CRX) 5 MG TAB IR PO (16:41)
== END 2024-09-22 17:16 | disposition home or self-care (01) ==
LOC: ANHED 12:51 → ANHSURGERY 12:56
PROVIDERS: Emergency Provider Emergency Medicine; PCP Nurse Practitioner; Visit Provider Urology
PROC: (CPT 52352; principal; 2024-09-22 15:00)
DX: N20.1 Calculus of ureter (principal); F41.9 Anxiety disorder, unspecified; E66.01 Morbid (severe) obesity due to excess calories; Z68.41 Body mass index [BMI] 40.0-44.9, adult; Z98.890 Other specified postprocedural states
CPT/HCPCS: 52356; 36415; 74176; 74420; 80053; 81001; 81025; 82365; 85025; 88300; 96361; 96374; 96375; 99285; A9270; C1769; C2617; J0690; J1100; J1171; J2250; J2270; J2405; J2704; J3010; J7030; J7120; Q9966